=== PATIENT | male | born 1940 | race Caucasian/White ===

== ENCOUNTER 2020-10-12 08:46 | Emergency (ER) | payer MEDICARE, SELFPAY ==
--- NOTE | ~2020-10-12 | CT_ITS ---
EXAMINATION: CT abdomen pelvis w con EXAM DATE: 10/12/2020 11:22 INDICATION: acute abdomen, bloody stools. TECHNIQUE: Spiral CT of the abdomen and pelvis was performed following intravenous injection of 100 m L Omnipaque 350. Axial, coronal and sagittal images were reviewed. The dose-length product (DLP) fo r this examination was 488.60 mGy-cm. The exposure was tailored according to patient size (auto mA e xposure control), and iterative reconstruction (ASIR) was used as additional dose reduction technique . There is no prior study for comparison. FINDINGS: There is fusiform mid abdominal aortic aneurysm up to 3.7 cm. Moderate scattered aortic art eriosclerotic disease. The liver, spleen, adrenal glands and pancreas are unremarkable. Gallbladder is unremarkable. No biliary obstruction. Portal and splenic veins are patent. Kidneys enhance sym metrically. There is no hydronephrosis. There is mild prostatomegaly. The bladder is unremarkable. There is no retroperitoneal or pelvic lymphadenopathy. There is filling defect within a branch of the superior mesenteric vein (see axial image 96). Appeara nce is suspicious for short segment arterial thrombus. Reconstitution of this vessel and branches is suspected distally. There are ileal loops with moderate edema, no pneumatosis or portal venous gas. The appendix is normal. There is expected amount of colonic stool. No free intraperitoneal gas. The heart is normal in size. There are no pericardial or pleural effusions. The lung bases are un remarkable. There are no osteoblastic or osteolytic lesions identified. IMPRESSION: 1. Moderate ileal wall edema, suspect most likely ischemic given SMA branch filling defect, likely th rombus. No pneumatosis intestinalis or perforation. Correlate with lactate levels. 2. Abdominal aortic 3.7 cm fusiform aneurysm. I discussed suspected small bowel ischemia with Angel Diez MD at 10/12/2020 11:43 SENIOR OFFICE SUPPORT ASSISTANT SOSA. Reviewed, dictated and finalized at location G. OR OFFICE SUPPORT ASSISTANT SOSA IMPRESSION: 1. Moderate ileal wall edema, suspect most likely ischemic given SMA branch angle ling defect, likely thrombus. No pneumatosis intestinalis or perforation. Corre late with lactate levels. 2. Abdominal aortic 3.7 cm fusiform aneurysm. I discussed suspected small bowel ischemia with Angel Diez MD at 10/12 11:43 SENIOR OFFICE SUPPORT ASSISTANT SOSA.
[2020-10-12 08:50] VITALS: BP 167/86; PULSE 82; RESP 20; TEMP 36.4; O2SAT 95
--- NOTE | 2020-10-12 09:09 | ED.GIBLEED ---
HPI - GI Bleed General Stated complaint: VOMITTING BLOOD IN STOOL Time Seen by Provider: 10/12/20 08:54 Source: patient Mode of arrival: wheelchair Limitations: no limitations
--- NOTE | 2020-10-12 09:15 | ECG_ITS ---
Measurements Intervals [place] Rate: 83 P: 75 AR: 142 QRS: 61 QRSD: 96 T: 19 QT: 351 QTc: 415 Interpretive Statements SINUS RHYTHM ATRIAL AND VENTRICULAR PREMATURE COMPLEXES INFERIOR INFARCT, AGE INDETERMINATE BASELINE ARTIFACT- I, III ABNORMAL ECG Electronically Signed On 10-12-2020 11:05:11 PUBLIC HEALTH ENGINEER by Henry Mayen D.O.
--- NOTE | 2020-10-12 09:19 | ED.ABDPAIN ---
HPI - Abdominal Pain General Chief Complaint: GI Bleed Stated Complaint: VOMITTING BLOOD IN STOOL Time Seen by Provider: 10/12/20 08:54 Source: patient Mode of arrival: wheelchair Limitations: no limitations History of Present Illness HPI narrative: 80-year-old man with a history of coronary artery disease comes to the emergency department complaining of abdominal pain, nonbloody vomiting, bloody stools blood in his urine. Patient states that his abdomen pain is severe and is mostly on his left periumbilical area. Denies prior similar symptoms and he has had no fever, rash, cough or cold symptoms, sore throat, or sick exposures. He denies chest pain. He has shortness of breath typically because of a history of COPD. MD elicited complaint: abdominal pain Pertinent past history: myocardial infarction Onset (ago): day(s) (1) Location: periumbilical and LLQ Severity: severe Quality: sharp Radiation: none Migration to: no migration Exacerbating factors: movement Associated symptoms: nausea, vomiting, hematochezia and hematuria Related Data Home Medications Medication Instructions Recorded Confirmed atorvastatin 80 mg BYMOUTH DAILY 10/12/20 10/12/20 famotidine 40 mg BYMOUTH DAILY 10/12/20 10/12/20 paroxetine HCl 40 mg PO DAILY 10/12/20 10/12/20 umeclidinium-vilanterol [Anoro 1 inh INHALATION DAILY 10/12/20 10/12/20 Ellipta] Allergies Allergy/AdvReac Type Severity Reaction Status Date / Time No Known Allergies Allergy Verified 10/12/20 10:31 Review of Systems Constitutional: Constitutional: Denies chills, Denies fever(s) and Denies weakness Eyes: Eyes: Denies change in vision and Denies photophobia ENT: Denies dysphagia, Denies nasal congestion and Denies sore throat Cardiovascular: Cardiovascular: Denies chest pain and Denies radiating jaw, neck or arm pain Respiratory: Respiratory: Denies cough and Denies dyspnea Gastrointestinal: Gastrointestinal: Reports as per HPI, Reports abdominal pain, Reports nausea and Reports vomiting Genitourinary: Genitourinary: Reports hematuria, Denies dysuria and Denies urinary frequency Musculoskeletal: Musculoskeletal: Reports back pain, Denies arthralgias and Denies joint swelling Integumentary/Breasts: Skin/Breast: Denies pruritus, Denies erythema and Denies rash Neurologic: Denies vertigo, Denies dizziness and Denies syncope Hematologic/Lymphatic: Hematologic/Lymphatic: Denies easy bleeding and Denies easy bruising Allergic/Immunologic: Allergic/Immunologic: Denies lip swelling and Denies tongue swelling [facility] Past Medical History Medical History (Updated 10/12/20 @ 12:20 by Angel Diez MD) COPD (chronic obstructive pulmonary disease) Coronary artery disease Dyslipidemia PTSD (post-traumatic stress disorder) Surgical History Surgical History (Updated 10/12/20 @ 09:41 by Angel Diez MD) H/O right wrist surgery History of coronary angioplasty with insertion of stent History of left shoulder replacement S/P ORIF (open reduction internal fixation) fracture L wrist S/P right knee arthroscopy Social History Social History (Updated 10/12/20 @ 09:41 by Angel Diez MD) Smoking status: Current every day smoker Tobacco type: cigars Alcohol intake: never Substance use: never Living arrangements: with family Exam Const: General: healthy appearing and alert Orientation/consciousness: patient oriented x3 Limitations: no limitations Other: Moderate acute distress HENMT: Head: normal to inspection Ears: external ears normal, TM's normal bilaterally and EAC's normal General nose exam: Normal nares present Face and sinus: normal facial exam Mouth: Yes moist mucous membranes Throat: posterior oropharynx normal Eyes: Conjunctivae: conjunctivae normal Pupils: Equal, round and reactive pupils present EOM: EOMs intact bilaterally Resp: Effort & Inspection: normal respiratory effort and not labored Auscultation: clear to aus
[2020-10-12] MEDS: SODIUM CHLORIDE 0.9% IV 1,000 ML 999 ML IV CONT (09:30)
[2020-10-12] MEDS: ONDANSETRON INJ 4 MG/2 ML VIAL IV PUSH ×2 (09:30→11:55)
[2020-10-12] MEDS: HYDROmorphone HCL INJ (*CRX) 2 MG/ML VIAL 0.5 MG IV PUSH ×3 (09:35→11:54)
[2020-10-12 09:43] LABS: Basophils Absolute Auto 0.03 K/mm3 (0.00-0.10); Basophils Percent Auto 0.2 % (0.0-1.0); Hematocrit 44.3 % (37.0-46.0); Hemoglobin 15.3 g/dL (12.4-15.3); Immature Granulocyte Absolute 0.14 K/mm3 (0.00-0.00); Immature Granulocyte Percent A 0.8 % (0.0-0.0); Lymphocytes Absolute Auto 0.57 K/mm3 (1.10-4.50); Lymphocytes Percent Auto 3.1 % (18.0-42.0); Mean Corpuscular HGB Conc 34.5 g/dL (32.0-36.0); Mean Corpuscular Hemoglobin 31.1 pg (27.0-31.0); Mean Platelet Volume 11.6 fl (8.7-11.0); Monocytes Absolute Auto 1.31 K/mm3 (0.10-0.90); Monocytes Percent Auto 7.1 % (2.0-11.0); Neutrophils Absolute Auto 16.4 K/mm3 (1.7-7.2); Neutrophils Percent Auto 88.8 % (50.0-70.0); Platelet Count Result 226 K/mm3 (150-420); Red Blood Count 4.92 M/mm3 (4.70-6.10); Red Cell Distribution Width 13.2 % (11.6-14.4); White Blood Count 18.5 K/mm3 (4.8-10.8)
[2020-10-12 09:46] LABS: Add Urine Microscopic? YES; Appearance Urine Clear (Clear); Bilirubin Urine Negative (Negative); Blood Urine 3+ (Negative); Color Urine Yellow (Yellow); Glucose Urine UA Negative (Negative); Ketones Urine Negative (Negative); Leukocyte Esterase Ur Negative LEU/UL (Negative); Nitrate Urine Negative (Negative); Protein Urine 2+ (Negative); Urobilinogen Urine 0.2 mg/dL (0.2-1.0); pH Urine 6.5 (5.0-8.0)
[2020-10-12 09:52] LABS: Bacteria Urine Trace /hpf; WBC Urine 0-3 /hpf (0-3)
[2020-10-12 09:59] LABS: Alanine Aminotransferase 34 U/L (16-63); Albumin Level 3.7 g/dL (3.4-5.0); Alkaline Phosphatase 96 U/L (46-116); Anion Gap 11 mmol/L (8-16); Aspartate Amino Transferase 50 U/L (15-37); Bilirubin,Total 0.8 mg/dL (0.00-1.00); Blood Urea Nitrogen 22 mg/dL (7-18); Calcium 10.7 mg/dL (8.5-10.1); Carbon Dioxide 28 mmol/L (21-32); Chloride 95 mmol/L (98-108); Estimated Glomerular Filt Rate > 60; Glucose 191 mg/dL (70-99); Lipase 59 U/L (73-393); Osmolality Calculated 286 mOsm/kg (285-295); Potassium 3.7 mmol/L (3.5-5.1); Sodium 134 mmol/L (136-145); Total Protein 7.9 g/dL (6.4-8.2); Troponin I 39.6 ng/L (0.00-60.4)
[2020-10-12 10:01] LABS: Partial Thromboplastin Time 28.9 SEC (23.90-30.70); Prothrombin Time 10.7 Seconds (9.50-12.10)
[2020-10-12 10:02] LABS: Lactic Acid Reflex 2.2 mmol/L (0.4-2.0)
--- NOTE | 2020-10-12 10:45 | PC.NURSE ---
REPORT TO CHIKIS GOODE
[2020-10-12 10:46] VITALS: BP 167/86; PULSE 82; RESP 20; TEMP 36.4; O2SAT 95
--- NOTE | 2020-10-12 11:50 | PC.NURSE ---
[facility] CALLED FOR POSSIBLE TRANSFER
[2020-10-12] MEDS: SODIUM CHLORIDE 0.9% IV 1,000 ML 200 ML IV CONT (11:54)
[2020-10-12 12:12] VITALS: BP 140/68; PULSE 78; O2SAT 97
--- NOTE | 2020-10-12 12:16 | PC.NURSE ---
[facility] TRANSFER - PT PREFERS US TO CALL [facility]
[2020-10-12 12:39] LABS: Reflex Lactic Acid Yes or No Add Lactic
[2020-10-12 13:11] LABS: Lactic Acid 1.5 mmol/L (0.4-2.0)
[2020-10-12] MEDS: metroNIDAZOLE 500 MG/ISO 100ML 500 MG/100 ML BAG 100 MG IVPB (13:20)
[2020-10-12 13:28] VITALS: BP 131/61; PULSE 75; O2SAT 97
== END 2020-10-12 13:50 | disposition short-term general hospital (02) ==
PROVIDERS: Emergency Provider Emergency Medicine; PCP Family Medicine
DX: K55.8 Other vascular disorders of intestine (principal); J44.9 Chronic obstructive pulmonary disease, unspecified; I25.10 Atherosclerotic heart disease of native coronary artery without angina pectoris; E78.5 Hyperlipidemia, unspecified; F17.200 Nicotine dependence, unspecified, uncomplicated
CPT/HCPCS: 36415; 74177; 80053; 81001; 83605; 83690; 84484; 85025; 85610; 85730; 87040; 93005; 96361; 96365; 96375; 96376; 99285; J1170; J1956; J2405; J7030; Q9965; Q9967

== ENCOUNTER 2020-10-24 09:31 | Observation (INO) | payer MEDICARE, SELFPAY ==
[2020-10-24] VITALS (16 sets, daily range): BP systolic 94–119; BP diastolic 51–77; PULSE 78–120; RESP 14–18; TEMP 36.8; O2SAT 91–98; BMI 23.8
--- NOTE | ~2020-10-24 | CT_ITS ---
EXAMINATION: CT abdomen pelvis w con EXAM DATE: 10/24/2020 11:21 INDICATION: Low abdominal pain, weakness. Ischemic colitis suspected on prior CT. TECHNIQUE: Spiral CT of the abdomen and pelvis was performed following intravenous injection of 100 m L Omnipaque 350. Axial, coronal and sagittal images were reviewed. The dose-length product (DLP) fo r this examination was 431.64 mGy-cm. The exposure was tailored according to patient size (auto mA e xposure control), and iterative reconstruction (ASIR) was used as additional dose reduction technique . Comparison is made to prior examination from 10/12/2020. FINDINGS: Again there is moderate mid small bowel wall edema, the same segments involved on prior shannan dy. 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 There is no pneumatosis in testinalis or portal venous gas. No perforation. Small amount of perihepatic ascites has developed. The liver, spleen, adrenal glands and pancreas are unremarkable. Gallbladder is unremarkable. No biliary obstruction. Portal and splenic veins are p atent. Kidneys enhance symmetrically. There is no hydronephrosis. The prostate is unremarkable. The bladder is unremarkable. There is no retroperitoneal or pelvic lymphadenopathy. There is moder ate scattered arteriosclerotic disease. Mid abdominal aortic fusiform hernia up to 3.7 cm unchanged. The appendix is normal. There is colonic fluid, correlate for diarrhea. No free intraperitoneal ga s. Small right pleural effusion has developed. Right basilar linear atelectasis. The lung bases ar e unremarkable. There are no osteoblastic or osteolytic lesions identified. IMPRESSION: 1. Interval resolution of previously seen SMA thrombus, but persistent moderately edematous small amanuel wel loops with hyperemia. 2. Colonic fluid, diarrhea. 3. Development of small right pleural effusion and small ascites. Reviewed, dictated and finalized at location B. ATION REP IMPRESSION: 1. Interval resolution of previously seen SMA thrombus, but persistent moderat romero edematous small bowel loops with hyperemia. 2. Colonic fluid, diarrhea. 3. Development of small right pleural effusion and small ascites.
[2020-10-24 10:32] LABS: Basophils Absolute Auto 0.06 K/mm3 (0.00-0.10); Basophils Percent Auto 0.3 % (0.0-1.0); Eosinophils Absolute Auto 0.04 K/mm3 (0.02-0.50); Eosinophils Percent Auto 0.2 % (1.0-6.0); Hematocrit 44.9 % (37.0-46.0); Hemoglobin 15.3 g/dL (12.4-15.3); Immature Granulocyte Absolute 0.15 K/mm3 (0.00-0.00); Immature Granulocyte Percent A 0.8 % (0.0-0.0); Lymphocytes Absolute Auto 0.89 K/mm3 (1.10-4.50); Lymphocytes Percent Auto 4.7 % (18.0-42.0); Mean Corpuscular HGB Conc 34.1 g/dL (32.0-36.0); Mean Corpuscular Hemoglobin 31.3 pg (27.0-31.0); Mean Corpuscular Volume 91.8 fL (78.0-102.0); Mean Platelet Volume 10.4 fl (8.7-11.0); Monocytes Percent Auto 4.8 % (2.0-11.0); Neutrophils Absolute Auto 16.8 K/mm3 (1.7-7.2); Neutrophils Percent Auto 89.2 % (50.0-70.0); Platelet Count Result 335 K/mm3 (150-420); Red Blood Count 4.89 M/mm3 (4.70-6.10); Red Cell Distribution Width 14.3 % (11.6-14.4); White Blood Count 18.8 K/mm3 (4.8-10.8)
[2020-10-24 10:48] LABS: Alanine Aminotransferase 49 U/L (16-63); Albumin Level 2.3 g/dL (3.4-5.0); Alkaline Phosphatase 63 U/L (46-116); Anion Gap 6 mmol/L (8-16); Aspartate Amino Transferase 27 U/L (15-37); Bilirubin,Total 0.9 mg/dL (0.00-1.00); Blood Urea Nitrogen 14 mg/dL (7-18); Calcium 8.5 mg/dL (8.5-10.1); Carbon Dioxide 28 mmol/L (21-32); Chloride 102 mmol/L (98-108); Estimated CRCL calculation 40 ml/min; Estimated Glomerular Filt Rate 50; Glucose 161 mg/dL (70-99); Lipase 80 U/L (73-393); Osmolality Calculated 285 mOsm/kg (285-295); Potassium 5.2 mmol/L (3.5-5.1); Sodium 136 mmol/L (136-145); Total Protein 5.9 g/dL (6.4-8.2)
[2020-10-24 10:53] LABS: Lactic Acid Reflex 1.9 mmol/L (0.4-2.0)
[2020-10-24 10:53] LABS: Appearance Urine Clear (Clear); Bilirubin Urine 2+ (Negative); Color Urine Yellow (Yellow); Glucose Urine UA Negative (Negative); Ketones Urine Trace (Negative); Leukocyte Esterase Ur Trace (Negative); Nitrate Urine Negative (Negative); Protein Urine Trace (Negative); Specific Grav Ur 1.025 (1.010-1.020); pH Urine 5.5 (5.0-8.0)
[2020-10-24 10:59] LABS: Add Urine Microscopic? YES; Blood Urine Trace-Intact (Negative); Calcium Oxalate Crystals Urine Present /hpf; RBC Urine 0-2 /hpf (0-2); WBC Urine 0-3 /hpf (0-3)
[2020-10-24 11:00] LABS: Bacteria Urine Trace /hpf; Mucus Urine Few /lpf
[2020-10-24] MEDS: SODIUM CHLORIDE 0.9% IV 1,000 ML 200 ML IV CONT ×3 (13:35→23:39)
[2020-10-24] MEDS: SODIUM CHLORIDE 0.9% IV 1,000 ML 500 ML IV CONT (15:08)
[2020-10-24] MEDS: ENOXAPARIN 40 MG/0.4 ML SYRINGE SUB-Q (15:09)
--- NOTE | 2020-10-24 19:14 | PC.NURSE ---
upset with staff with meds. Explained I will get one time doses for him. claims he did not take am meds. tried to explain med doses on some meds have changed. cont to want meds as he wants. charge nurse aware. no c/o of n/v or pain voiced. refuses clear liquids. claims that stuff takes like shit and refuses to try. attempted to explain why it is clear liquid. he just will not let nurse explain. claims I want it my way. douglas harper
[2020-10-24] MEDS: ATORVASTATIN 40 MG TABLET 80 MG PO (21:00)
[2020-10-25] VITALS: BP 105/62; PULSE 72; RESP 20; TEMP 36.8; O2SAT 96
[2020-10-25] MEDS: SODIUM CHLORIDE 0.9% IV 1,000 ML 200 ML IV CONT ×3 (05:20→17:59)
[2020-10-25 05:56] LABS: Hematocrit 35.6 % (37.0-46.0); Hemoglobin 11.6 g/dL (12.4-15.3); Mean Corpuscular HGB Conc 32.6 g/dL (32.0-36.0); Mean Corpuscular Hemoglobin 30.4 pg (27.0-31.0); Mean Corpuscular Volume 93.2 fL (78.0-102.0); Mean Platelet Volume 10.5 fl (8.7-11.0); Platelet Count Result 262 K/mm3 (150-420); Red Blood Count 3.82 M/mm3 (4.70-6.10); Red Cell Distribution Width 14.5 % (11.6-14.4); White Blood Count 6.1 K/mm3 (4.8-10.8)
--- NOTE | 2020-10-25 06:19 | PC.NURSE ---
Stool, continent, mushy brown, moderate amt.
[2020-10-25 06:20] LABS: Alanine Aminotransferase 38 U/L (16-63); Albumin Level 1.9 g/dL (3.4-5.0); Alkaline Phosphatase 52 U/L (46-116); Anion Gap 5 mmol/L (8-16); Aspartate Amino Transferase 22 U/L (15-37); Bilirubin,Total 0.5 mg/dL (0.00-1.00); Blood Urea Nitrogen 11 mg/dL (7-18); Calcium 7.4 mg/dL (8.5-10.1); Carbon Dioxide 28 mmol/L (21-32); Chloride 109 mmol/L (98-108); Estimated CRCL calculation 55 ml/min; Estimated Glomerular Filt Rate > 60; Glucose 91 mg/dL (70-99); Lipase 81 U/L (73-393); Magnesium 1.8 mg/dL (1.8-2.4); Osmolality Calculated 293 mOsm/kg (285-295); Potassium 4.8 mmol/L (3.5-5.1); Sodium 142 mmol/L (136-145); Total Protein 4.5 g/dL (6.4-8.2)
[2020-10-25 06:25] LABS: Lactic Acid Reflex 0.7 mmol/L (0.4-2.0)
--- NOTE | 2020-10-25 06:37 | ED.ABDPAIN ---
HPI - Abdominal Pain General Chief Complaint: Weakness Stated Complaint: DEHYDRATED Time Seen by Provider: 10/24/20 10:05 Source: patient and family Mode of arrival: ambulatory Limitations: no limitations History of Present Illness HPI narrative: Patient has had abdominal pain, relatively severe since 2 am last night. This has been associated with some some mild nausea. He says he had some loose stools prior to this and feels he is dry, dehydrated. Abdominal pain he complains of is sharp, moderately severe, ongoing not relieved at home, similar to previous episode not long ago when he presented with a clot in his superior mesenteric artery MD elicited complaint: abdominal pain Pertinent past history: other (ischemia of bowel) Pain Consistency: intermittent Location: diffuse Severity: moderate Quality: cramping and stabbing Radiation: other (wide throughout abdomen) Exacerbating factors: other (decreased when does not eat) Relieving factors: rest Treatments prior to arrival: NSAIDs and prescription analgesics Related Data Home Medications Medication Instructions Recorded Confirmed paroxetine HCl 40 mg PO DAILY 10/12/20 10/24/20 umeclidinium-vilanterol [Anoro 1 inh INHALATION DAILY 10/12/20 10/24/20 Ellipta] atorvastatin 80 mg PO DAILY 10/24/20 10/24/20 famotidine 40 mg PO BID 10/24/20 10/24/20 Allergies Allergy/AdvReac Type Severity Reaction Status Date / Time No Known Allergies Allergy Verified 10/12/20 10:31 Review of Systems Eyes: Eyes: Reports no additional eye complaints Cardiovascular: Cardiovascular: Reports no additional cardiovascular complaints Respiratory: Respiratory: Reports no additional respiratory complaints Gastrointestinal: Gastrointestinal: Reports no additional gastrointestinal complaints, Reports abdominal pain, Reports diarrhea and Reports nausea Comments: presentation such as abdominal ischemia Genitourinary: Genitourinary: Reports no additional male genitourinary complaints Musculoskeletal: Musculoskeletal: Reports no additional musculoskeletal complaints Integumentary/Breasts: Skin/Breast: Reports system reviewed and no additional complaints, except as docu Neurologic: Reports system reviewed and no additional complaints, except as documented Psychiatric: Psychiatric: Reports no additional psychiatric complaints Endocrine: Endocrine: Reports no additional endocrine complaints Hematologic/Lymphatic: Hematologic/Lymphatic: Reports no additional hematologic/lymphatic complaints Allergic/Immunologic: Allergic/Immunologic: Reports no additional allergic/immunologic complaints [facility] Past Medical History Medical History COPD (chronic obstructive pulmonary disease) Coronary artery disease Dyslipidemia PTSD (post-traumatic stress disorder) Surgical History Surgical History H/O right wrist surgery History of coronary angioplasty with insertion of stent History of left shoulder replacement S/P ORIF (open reduction internal fixation) fracture L wrist S/P right knee arthroscopy Family History Family History Father Cerebrovascular accident Social History Social History Years smoked: 70 Smoking status: Current every day smoker Tobacco type: cigars Alcohol intake: never Substance use: never Gender identity (if verbalized by the patient): Male Sexual Orientation (if Verbalized by the Patient): Straight or Heterosexual Spiritual care concerns: No Exam Const: Orientation/consciousness: patient oriented x3 HENMT: Head: normal to inspection General nose exam: Normal external nose present and Normal nares present Face and sinus: normal facial exam Throat: posterior oropharynx normal Eyes: Conjunctivae: conjunctivae normal Neck: Neck: normal visual inspectio
[2020-10-25 07:45] VITALS: BP 96/67; PULSE 86; RESP 18; TEMP 36.8; O2SAT 95
--- NOTE | 2020-10-25 08:36 | PM.IMHP ---
H&P: HPI History of Present Illness Date/Time: 10/25/20 08:36 Chief Complaint: Abdominal pain Narrative: Tanisha Garcia is a 80 year old male that presented to the ED yesterday with complaints of severe abdominal pain. PMH: COPD, CAD, dyslipidemia, PTSD . Patient previously visited here 10/12/2020 for abdominal pain vomiting and blood in stool. At that time imaging indicated MAT patient was transferred to [facility] in [place] for general surgery(Dr. Castaneda). Patient notes that at that time he was medically treated with no surgical intervention. Shortly afterwards he started experiencing abdominal pain once again and went to [facility] again. At that time patient was treated with IV fluids and discharged. I have requested records from [facility]. Patient also noted that he was to follow-up with an appointment. Patient has yet to do that because he has been ill and has been unable to travel 70 pounds. Patient continues to complain of abdominal pain but not as severe as it was when he was first admitted. Patient has not had any pain medication. He has been on liquid diet regular diet. I will advance his diet to see how well he tolerates. Patient does deny any hematochezia since his first first on 10/12/2020. The patient denies SOB, CP, palpitation, extremity numbness, lightheadedness, dizziness, constipation, diarrhea, chills, or fever. Patient noted that after he ate toast for breakfast he did experience mild abdominal pain. 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 He prefers to refrain from narcotics use This document was completed by using [employer] Direct speech recognition software, therefore tallow refiner variances may occur. Despite proofreading, typographical errors may also occur. Review of Systems Review of Systems: All systems reviewed & are unremarkable except as noted in HPI and below (10 point system review) PMFSH Past Medical History Medical History COPD (chronic obstructive pulmonary disease) Coronary artery disease Dyslipidemia PTSD (post-traumatic stress disorder) Surgical History Surgical History H/O right wrist surgery History of coronary angioplasty with insertion of stent History of left shoulder replacement S/P ORIF (open reduction internal fixation) fracture L wrist S/P right knee arthroscopy Family History Family History Father Cerebrovascular accident Social History Social History Years smoked: 70 Smoking status: Current every day smoker Tobacco type: cigars Alcohol intake: never Substance use: never Gender identity (if verbalized by the patient): Male Sexual Orientation (if Verbalized by the Patient): Straight or Heterosexual Spiritual care concerns: No Meds Home Medications and Allergies Home Medications Medication Instructions Recorded Confirmed Type paroxetine HCl 40 mg PO DAILY 10/12/20 10/24/20 History umeclidinium-vilanterol [Anoro 1 inh INHALATION DAILY 10/12/20 10/24/20 History Ellipta] atorvastatin 80 mg PO DAILY 10/24/20 10/24/20 History famotidine 40 mg PO BID 10/24/20 10/24/20 History Allergies Allergy/AdvReac Type Severity Reaction Status Date / Time No Known Allergies Allergy Verified 10/12/20 10:31 Vital Signs Vital Signs - 24 hr 10/24/20 09:57 10/24/20 11:41 10/24/20 11:45 Temperature 98.2 F Pulse Rate 120 H Respiratory Rate 14 Blood Pressure 110/77 Pulse Oximetry 96 97 98 10/24/20 12:00 10/24/20 12:01 10/24/20 12:15 Temperature Pulse Rate Respiratory Rate Blood Pressure 119/63 110/66 Pulse Oximetry 95 96 94 10/24/20 12:30 10/24/20 12:31 10/24/20 12:46 Temperature Pulse Rate Respiratory Rate Blood Pressure 1
[2020-10-25] MEDS: ATORVASTATIN 40 MG TABLET 80 MG PO (09:14)
[2020-10-25] MEDS: PARoxetine 20 MG TABLET 40 MG PO (09:14)
[2020-10-25] MEDS: FLUTICASONE/UMECLIDIN/VILANTER 100-62.5-25 MCG ELLIPTA 1 PUFF INHALATION (09:15)
[2020-10-25 10:03] LABS: Add Urine Microscopic? YES; Appearance Urine Clear (Clear); Bilirubin Urine Negative (Negative); Blood Urine 1+ (Negative); Color Urine Yellow (Yellow); Glucose Urine UA Negative (Negative); Ketones Urine Negative (Negative); Leukocyte Esterase Ur Negative LEU/UL (Negative); Nitrate Urine Negative (Negative); Protein Urine Negative (Negative); Specific Grav Ur 1.015 (1.010-1.020); Urobilinogen Urine 0.2 mg/dL (0.2-1.0); pH Urine 6.5 (5.0-8.0)
[2020-10-25 10:08] LABS: Bacteria Urine Trace /hpf; RBC Urine 0-2 /hpf (0-2); WBC Urine 0-3 /hpf (0-3)
--- NOTE | 2020-10-25 11:55 | ECG_ITS ---
Measurements Intervals [place] Rate: 72 P: 65 MD: 138 QRS: 63 QRSD: 90 T: -25 QT: 381 QTc: 419 Interpretive Statements SINUS RHYTHM WITH SINUS ARRHYTHMIA INFERIOR INFARCT, AGE INDETERMINATE BASELINE ARTIFACT- V5-V6 ABNORMAL ECG Electronically Signed On 10-25-2020 12:44:05 DRAWING IN MACHINE TENDER HELPER by Henry Mayen D.O.
[2020-10-25 14:23] LABS: Occult Blood Negative (Negative)
[2020-10-25] MEDS: ENOXAPARIN 40 MG/0.4 ML SYRINGE SUB-Q (14:45)
[2020-10-25 15:34] VITALS: BP 106/60; PULSE 71; RESP 18; TEMP 36.9; O2SAT 97
--- NOTE | 2020-10-25 18:25 | PC.NURSE ---
pt is unhappy that the nurse practitioner never came back in to discuss a plan after receiving his records from [facility], pt also expresses unhappiness over the dr messing with his medicines , pt reports his stomach pain has returned but declines pain medicine at this time
[2020-10-25] MEDS: ONDANSETRON INJ 4 MG/2 ML VIAL IV PUSH (19:07)
[2020-10-25 23:41] VITALS: BP 109/57; PULSE 76; RESP 18; TEMP 37.3; O2SAT 95
[2020-10-26] MEDS: SODIUM CHLORIDE 0.9% IV 1,000 ML 200 ML IV CONT ×2 (00:34→05:50)
[2020-10-26 05:41] LABS: Hematocrit 33.3 % (37.0-46.0); Hemoglobin 10.9 g/dL (12.4-15.3); Mean Corpuscular HGB Conc 32.7 g/dL (32.0-36.0); Mean Corpuscular Hemoglobin 30.7 pg (27.0-31.0); Mean Corpuscular Volume 93.8 fL (78.0-102.0); Mean Platelet Volume 10.7 fl (8.7-11.0); Platelet Count Result 278 K/mm3 (150-420); Red Blood Count 3.55 M/mm3 (4.70-6.10); Red Cell Distribution Width 14.4 % (11.6-14.4); White Blood Count 6.1 K/mm3 (4.8-10.8)
[2020-10-26 06:09] LABS: Alanine Aminotransferase 37 U/L (16-63); Albumin Level 1.7 g/dL (3.4-5.0); Alkaline Phosphatase 46 U/L (46-116); Anion Gap 7 mmol/L (8-16); Aspartate Amino Transferase 29 U/L (15-37); Bilirubin,Total 0.3 mg/dL (0.00-1.00); Blood Urea Nitrogen 7 mg/dL (7-18); CRP 3.7 mg/dL (0.0-0.9); Calcium 6.9 mg/dL (8.5-10.1); Carbon Dioxide 25 mmol/L (21-32); Chloride 111 mmol/L (98-108); Estimated CRCL calculation 63 ml/min; Estimated Glomerular Filt Rate > 60; Glucose 96 mg/dL (70-99); Lipase 113 U/L (73-393); Magnesium 1.7 mg/dL (1.8-2.4); Osmolality Calculated 294 mOsm/kg (285-295); Potassium 4.3 mmol/L (3.5-5.1); Sodium 143 mmol/L (136-145); Total Protein 4.2 g/dL (6.4-8.2)
[2020-10-26 08:00] VITALS: BP 111/63; PULSE 72; RESP 18; TEMP 37.1; O2SAT 95
[2020-10-26] MEDS: PARoxetine 20 MG TABLET 40 MG PO (09:08)
[2020-10-26] MEDS: MAGNESIUM OXIDE 400 MG TABLET PO (09:09)
[2020-10-26] MEDS: predniSONE 20 MG TABLET 60 MG PO (09:09)
[2020-10-26] MEDS: FAMOTIDINE 20 MG TABLET PO (09:12)
--- NOTE | 2020-10-26 11:28 | PM.DS ---
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 Continue IV hydration as recommended by surgeons at [place] Requested medical records from [facility] (2) COPD (chronic obstructive pulmonary disease): Code(s): J44.9 - Chronic obstructive pulmonary disease, unspecified Status: Acute Assessment and Plan: Continue inhalers (3) PTSD (post-traumatic stress disorder): Code(s): F43.10 - Post-traumatic stress disorder, unspecified Status: Acute Assessment and Plan: Stable continue paroxetine (4) Coronary artery disease: Code(s): I25.10 - Atherosclerotic heart disease of [place] coronary artery without angina pectoris Status: Acute Assessment and Plan: Continue statins (5) Hyperemia: Code(s): R68.89 - Other general symptoms and signs Status: Acute Assessment and Plan: Imaging indicates persistent moderately edematous small bowel loops with hyperemia DS: Summary Hospital Course Hospital Course: Tanisha Garcia is a 80 year old male that presented to the ED yesterday with complaints of severe abdominal pain. PMH: COPD, CAD, dyslipidemia, PTSD . Patient previously visited here 10/12/2020 for abdominal pain vomiting and blood in stool. At that time imaging indicated MAT patient was transferred to [facility] in [place] for general surgery(Dr. Castaneda). Patient notes that at that time he was medically treated with no surgical intervention. Shortly afterwards he started experiencing abdominal pain once again and went to [facility] again. At that time patient was treated with IV fluids and discharged. I have requested records from [facility]. Patient also noted that he was to follow-up with an appointment. Patient has yet to do that because he has been ill and has been unable to travel 70 pounds. Patient abdominal pain has improved he does have tenderness to his mid abdominal area. He was able to tolerate all his meals. The patient denies SOB, CP, palpitation, extremity numbness, lightheadedness, dizziness, constipation, diarrhea, chills, or fever. Patient will follow up with his surgeon in [place] Time Spent with Patient Time attestation: Total time spent providing and/or coordinating discharge services: Exam Narrative: Exam Narrative: GENERAL: This is a well-nourished, well-developed patient, in no apparent distress. HEAD: normocephalic, atraumatic. EYES: PERRL. Sclera clear/white. Vision is grossly intact. EARS: External ears normal, auditory canals clear and without drainage, TMs normal without perforation. Hearing grossly intact. NOSE: External nose normal with no obvious nasal discharge, nares without redness, no rhinorrhea. THROAT: Mucous membranes moist, posterior pharynx clear. NECK: Neck supple, non-tender without lymphadenopathy, masses or thyromegaly. CARDIOVASCULAR: Regular rate and rhythm without murmurs, gallops, or rubs. RESPIRATORY: Clear to auscultation. Breath sounds equal bilaterally. No wheezes, rales, or rhonchi. GASTROINTESTINAL: Abdomen soft, non-tender, nondistended. Bowel sounds are active. No hepato-splenomegaly, or palpable masses. No guarding. SKIN: warm, intact with no suspicious lesions or rash, good texture and turgor. NEURO: awake, alert, and oriented to person, place and time. There were no obvious focal neurologic abnormalities. Steady gait EXTREMITIES: Normal range of motion. No edema. No calf tenderness. Negative Homans sign bilaterally. BACK: Nontender without deformity or crepitance. No flank tenderness.
--- NOTE | 2020-10-26 12:08 | PC.NURSE ---
Patient discharge to home via private vehicle. Saline lock removed and tolerated well. Patient verbalizes understanding on how to monitor for sings and symptoms of infections. Home instructions given to patient and he verbalizes understanding. Personal belongings sent with patient.
--- NOTE | 2020-10-27 15:03 | PC.NURSE ---
Pt states he received and understood his discharge instructions. He also states the entire staff was good .
== END 2020-10-26 12:30 | disposition home or self-care (01) ==
LOC: CHSED 10:53 → CHS2ND 13:38
PROVIDERS: Nurse Practitioner; Admitting Provider Emergency Medicine; Emergency Provider Emergency Medicine; PCP Family Medicine; Visit Provider Emergency Medicine
DX: K55.059 Acute (reversible) ischemia of intestine, part and extent unspecified (principal); J44.9 Chronic obstructive pulmonary disease, unspecified; E78.5 Hyperlipidemia, unspecified; F43.10 Post-traumatic stress disorder, unspecified; F17.290 Nicotine dependence, other tobacco product, uncomplicated; Z95.5 Presence of coronary angioplasty implant and graft; Z96.612 Presence of left artificial shoulder joint
CPT/HCPCS: 36415; 74177; 80053; 81001; 82272; 83605; 83690; 83735; 85025; 85027; 86140; 93005; 96361; 96372; 96374; 99285; A9270; G0378; J1650; J2405; J7030; J7512; Q9965; Q9967

== ENCOUNTER 2020-11-01 17:35 | Outpatient (CLI) | payer MEDICARE, SELFPAY ==
[2020-11-01 17:51] LABS: Basophils Absolute Auto 0.07 K/mm3 (0.00-0.10); Basophils Percent Auto 0.6 % (0.0-1.0); Eosinophils Absolute Auto 0.17 K/mm3 (0.02-0.50); Eosinophils Percent Auto 1.4 % (1.0-6.0); Hematocrit 47.5 % (37.0-46.0); Hemoglobin 15.5 g/dL (12.4-15.3); Immature Granulocyte Absolute 0.09 K/mm3 (0.00-0.00); Immature Granulocyte Percent A 0.8 % (0.0-0.0); Lymphocytes Absolute Auto 1.82 K/mm3 (1.10-4.50); Lymphocytes Percent Auto 15.4 % (18.0-42.0); Mean Corpuscular HGB Conc 32.6 g/dL (32.0-36.0); Mean Corpuscular Hemoglobin 30.6 pg (27.0-31.0); Mean Corpuscular Volume 93.7 fL (78.0-102.0); Mean Platelet Volume 10.8 fl (8.7-11.0); Monocytes Absolute Auto 1.06 K/mm3 (0.10-0.90); Neutrophils Absolute Auto 8.6 K/mm3 (1.7-7.2); Neutrophils Percent Auto 72.8 % (50.0-70.0); Platelet Count Result 285 K/mm3 (150-420); Red Blood Count 5.07 M/mm3 (4.70-6.10); Red Cell Distribution Width 14.5 % (11.6-14.4); White Blood Count 11.8 K/mm3 (4.8-10.8)
[2020-11-01 18:00] LABS: Anion Gap 7 mmol/L (8-16); Blood Urea Nitrogen 15 mg/dL (7-18); Calcium 9.2 mg/dL (8.5-10.1); Carbon Dioxide 31 mmol/L (21-32); Chloride 102 mmol/L (98-108); Estimated Glomerular Filt Rate 53; Glucose 129 mg/dL (70-99); Osmolality Calculated 292 mOsm/kg (285-295); Potassium 4.1 mmol/L (3.5-5.1); Sodium 140 mmol/L (136-145)
== END 2020-11-01 17:36 | disposition home or self-care (01) ==
LOC: CHSLAB 17:36
PROVIDERS: PCP Family Medicine; Visit Provider Family Medicine
DX: M79.605 Pain in left leg (principal)
CPT/HCPCS: 36415; 80048; 85025; 85380

== ENCOUNTER 2020-11-03 10:39 | Emergency (ER) | payer MEDICARE, SELFPAY ==
--- NOTE | ~2020-11-03 | CT_ITS ---
EXAMINATION: CTA chest PE abdomen pel DATE: 11/03/2020 12:23 INDICATION: Left lower limb deep venous thrombosis presenting with abdominal pain and increasing left lower limb pain. TECHNIQUE: Computed tomography (CT) pulmonary angiogram of the chest was performed with 100 mL Omnipa que-350 intravenous contrast. Additional 3D reconstructions utilizing coronal maximum intensity proje ction (MIP) were performed. CT of the abdomen and pelvis was performed with intravenous contrast util izing the same contrast bolus following a short delay. Automated exposure control and iterative recon struction technique were employed. The dose-length product was 776.91 mGy-cm. COMPARISON: None FINDINGS: Chest: Excellent contrast opacification of the pulmonary arteries. There is mild streak artifact from dense contrast in the superior vena cava and right atrium. Mild scattered respiratory motion artifact. Ther e are bilateral pulmonary emboli including in the anterior segmental pulmonary artery of the left low er lobe and extending between the right middle and lower lobar pulmonary arteries and into a few segm ental and subsegmental pulmonary arteries in the right middle and lower lobes. Moderate emphysema. Sm all region of groundglass opacity in the posterior basilar segment of the right lower lobe which coul d represent pulmonary infarct, atelectasis or less likely pneumonia or pulmonary edema. Tiny posterio rly layering right pleural effusion.. Heart size is normal. No leftward bowing of the ventricular sep viktoria to suggest right heart strain. Atherosclerotic coronary artery calcific a cyst. Thoracic aorta is normal in caliber with no dissection. No pathologically enlarged thoracic lymphadenopathy. Small sli ding-type hiatal hernia. Severe lower thoracic spondylosis. Abdomen/pelvis: Liver, gallbladder, spleen, pancreas and bilateral adrenal glands are normal. There are few bilateral subcentimeter renal cysts. Small focus of cortical scarring at the lower pole of the right kidney li jaylyn sequela of prior infection or infarction. Fluid throughout the colon consistent with diarrhea. N ormal appendix. There is edematous wall thickening along several loops of small bowel in the pelvis c onsistent with nonspecific enteritis which could be infectious, inflammatory or ischemic in etiology . Fusiform aneurysm of the infrarenal abdominal aorta which measures up to 3.9 x 3.7 cm. There is renee cified atherosclerosis of the aorta and many of the other arteries. No hemodynamic significant stenos is along the celiac axis, superior or inferior mesenteric arteries. The portal, splenic and superior mesenteric veins are patent. Diffuse mild bladder wall thickening to at least in part to incomplete d istention. There is also be component of chronic outlet obstruction given the enlarged prostate. No f ree intraperitoneal gas or fluid. No pathologically enlarged abdominal or pelvic lymphadenopathy. Lef t hydrocele. Severe lower lumbar spondylosis. IMPRESSION: 1. Bilateral pulmonary emboli with moderate clot burden but without evidence of right heart strain. Vu Monge discussed these findings with Dr. Diez at 12:40 PM. 2. Persistent edematous wall thickening of a few loops of small bowel in the pelvis which is likely r elated to prior ischemia with thrombus seen in the superior mesenteric artery on earlier CT dated . Differential would include infection or inflammatory bowel disease. 3. Fusiform 3.9 x 3.7 cm diameter infrarenal abdominal aortic aneurysm. 4. Moderate emphysema. 5. Small sliding-type hiatal hernia. 6. Mild diffuse bladder wall thickening which could be related to chronic outlet obstruction related to prostatomegaly. Reviewed, dictated and finalized at location A. ISIONING ANALYST IMPRESSION: 1. Bilatera
--- NOTE | ~2020-11-03 | US_ITS ---
EXAMINATION: US venous doppler [facility] DATE: 11/03/2020 12:50 INDICATION: Lower limb pain. TECHNIQUE: Grayscale ultrasound images without and with compression and Doppler ultrasound images of the bilateral lower extremity veins were obtained. COMPARISON: None. FINDINGS: The visualized portions of right common femoral vein, profunda (deep) femoral vein, femoral vein, pop liteal vein, peroneal veins, posterior tibial veins, and greater saphenous vein outflow are patent. The left profunda femoral vein and greater saphenous vein outflow are patent. There is thrombus in le ft common femoral vein, femoral vein, popliteal vein, and posterior tibial and peroneal veins. IMPRESSION: 1. Acute deep vein thrombosis in left lower limb. Reviewed, dictated and finalized at location B. OR CLINICAL DATA MANAGER
[2020-11-03 11:20] VITALS: BP 101/64; PULSE 108; RESP 18; TEMP 36.6; O2SAT 95
--- NOTE | 2020-11-03 11:21 | ED.EXTPRO ---
HPI - Extremity Problem General Chief complaint: Extremity Injury, Lower Stated complaint: blood clot L Leg, pain/Can't urinate Time Seen by Provider: 11/03/20 11:21 Source: patient Mode of arrival: wheelchair Limitations: no limitations History of Present Illness HPI Narrative: 80-year-old man a history of smoking, COPD, coronary artery disease and a recent episode of small-bowel ischemia comes in today complaining of pain in his left leg. Patient states that is been present for the last week. His primary care doctor found that he had a positive D-dimer yesterday And was arranging outpatient diagnosis when the patient began complaining of difficulty urinating. He is making urine in small amounts. He denies hematuria, abdominal pain, nausea, vomiting, fever, chest pain, shortness of breath, more cough than usual or back pain. He denies injury. MD Complaint: extremity pain Onset (ago): week(s) (1) Pain Consistency: constant Location: left and lower extremity Quality: aching and sharp Radiation: proximal and distal Relieving factors: rest Exacerbating factors: range of motion, weight bearing, walking and palpation Related Data Home Medications Medication Instructions Recorded Confirmed Anoro Ellipta 1 inh INHALATION DAILY 10/12/20 11/03/20 paroxetine HCl 40 mg PO DAILY 10/12/20 11/03/20 atorvastatin 80 mg PO DAILY 10/24/20 11/03/20 famotidine 40 mg PO BID 10/24/20 11/03/20 Allergies Allergy/AdvReac Type Severity Reaction Status Date / Time No Known Allergies Allergy Verified 10/12/20 10:31 Review of Systems Constitutional: Constitutional: Denies chills, Denies fever(s) and Denies weakness ENT: Denies dysphagia, Denies nasal congestion and Denies sore throat Cardiovascular: Cardiovascular: Denies chest pain and Denies radiating jaw, neck or arm pain Respiratory: Respiratory: Denies cough, Denies dyspnea and Denies wheezing Gastrointestinal: Gastrointestinal: Denies abdominal pain, Denies nausea and Denies vomiting Genitourinary: Genitourinary: Denies hematuria, Reports dysuria and Reports urinary frequency Musculoskeletal: Musculoskeletal: Denies back pain, Denies arthralgias and Denies joint swelling Integumentary/Breasts: Skin/Breast: Denies pruritus, Denies erythema and Denies rash Neurologic: Denies vertigo, Denies dizziness and Denies syncope Hematologic/Lymphatic: Hematologic/Lymphatic: Denies easy bleeding and Denies easy bruising Allergic/Immunologic: Allergic/Immunologic: Denies lip swelling, Denies throat swelling and Denies tongue swelling [facility] Past Medical History Medical History COPD (chronic obstructive pulmonary disease) Coronary artery disease Dyslipidemia PTSD (post-traumatic stress disorder) Surgical History Surgical History H/O right wrist surgery History of coronary angioplasty with insertion of stent History of left shoulder replacement S/P ORIF (open reduction internal fixation) fracture L wrist S/P right knee arthroscopy Family History Family History Father Cerebrovascular accident Social History Social History Years smoked: 70 Smoking status: Current every day smoker Tobacco type: cigars Alcohol intake: never Substance use: never Gender identity (if verbalized by the patient): Male Spiritual care concerns: No Exam Const: General: alert Nutritional Appearance: thin Orientation/consciousness: patient oriented x3 Limitations: no limitations Other: [id number] acute distress. HENMT: Head: normal to inspection General nose exam: Normal nares present Face and sinus: normal facial exam Mouth: Yes moist mucous membranes Throat: posterior oropharynx normal Eyes: Conjunctivae: conjunctivae normal Pupils: Equal, round and reactive
[2020-11-03] MEDS: ENOXAPARIN 100 MG/ML SYRINGE SUB-Q (11:49)
--- NOTE | 2020-11-03 11:54 | PC.NURSE ---
PT TO RADIOLOGY PER STRETCHER.
--- NOTE | 2020-11-03 12:50 | PC.NURSE ---
pt returned to er room 1
[2020-11-03 13:10] VITALS: BP 110/58; PULSE 102; RESP 16; O2SAT 95
[2020-11-03 13:13] LABS: Appearance Urine Cloudy (Clear); Bilirubin Urine Negative (Negative); Color Urine Yellow (Yellow); Glucose Urine UA Negative (Negative); Ketones Urine Negative (Negative); Leukocyte Esterase Ur Negative (Negative); Nitrate Urine Negative (Negative); Protein Urine Negative (Negative); Urobilinogen Urine 0.2 mg/dL (0.2-1.0); pH Urine 7.5 (5.0-8.0)
[2020-11-03 13:18] LABS: Add Urine Microscopic? YES; Blood Urine Trace-Intact (Negative); RBC Urine 0-2 /hpf (0-2); Squamous Epithelial Cell Urine Occasional /hpf (Few); WBC Urine 0-3 /hpf (0-3)
[2020-11-03 13:19] LABS: Amorphous Sediment Urine Heavy; Bacteria Urine 1+ /hpf; Mucus Urine Few /lpf
[2020-11-03 14:20] VITALS: PULSE 100; RESP 16; O2SAT 95
== END 2020-11-03 14:30 | disposition home or self-care (01) ==
PROVIDERS: Emergency Provider Emergency Medicine; PCP Family Medicine
DX: I26.99 Other pulmonary embolism without acute cor pulmonale (principal); I82.412 Acute embolism and thrombosis of left femoral vein; R82.90 Unspecified abnormal findings in urine; J44.9 Chronic obstructive pulmonary disease, unspecified; I25.10 Atherosclerotic heart disease of native coronary artery without angina pectoris; E78.5 Hyperlipidemia, unspecified; F17.200 Nicotine dependence, unspecified, uncomplicated
CPT/HCPCS: 71275; 74177; 81001; 87086; 87088; 93970; 96372; 99283; 99284; J1650; Q9967

== ENCOUNTER 2020-11-04 05:00 | Observation (INO) | payer MEDICARE, SELFPAY ==
[2020-11-04] VITALS (8 sets, daily range): BP systolic 93–127; BP diastolic 51–79; PULSE 52–115; RESP 16–20; TEMP 36.3–36.8; O2SAT 91–97; BMI 24.0
--- NOTE | ~2020-11-04 | XR_ITS ---
EXAMINATION: XR chest 2V DATE: 11/04/2020 06:05 INDICATION: Chest pain TECHNIQUE: Frontal and lateral views of the chest are obtained COMPARISON: CT from the previous day FINDINGS: There are minimal airspace opacities of the lung bases. There is no pleural effusion or pne umothorax. The cardiomediastinal silhouette is normal. There is moderate thoracic spondylosis. Change s of left total shoulder arthroplasty are noted. IMPRESSION: 1. Bibasilar airspace opacities, likely atelectasis. Reviewed, dictated and finalized at location A. BOARD INSTRUCTOR
--- NOTE | 2020-11-04 05:23 | ED.SOB ---
HPI - SOB/Dyspnea General Chief Complaint: Shortness of Breath/Dyspnea Stated Complaint: Shortness of Breath Time Seen by Provider: 11/04/20 05:23 Source: patient and family Mode of arrival: wheelchair Limitations: no limitations History of Present Illness HPI Narrative: 80-year-old man who was diagnosed earlier today with pulmonary embolism and DVT comes in today because he feels short of breath and has chest pain. It started approximately 2:00 a.m. (I.E., 3 hours ago) states the pain is worse with taking a deep breath. He states he is having difficulty getting about at home. He also complains that he had only a very small amount urine. MD elicited complaint: shortness of breath and chest pain Pertinent past history: COPD, PE and DVT Onset (ago): hour(s) (3) Timing: constant Severity: severe Exacerbating factors: movement and inspiration Relieving factors: rest Known history of: COPD, PE and DVT Associated symptoms: chest pain and lower extremity pain Treatment prior to arrival: none Related Data Home oxygen amount: none Home Medications Medication Instructions Recorded Confirmed Anoro Ellipta 1 inh INHALATION DAILY 10/12/20 11/03/20 paroxetine HCl 40 mg PO DAILY 10/12/20 11/03/20 atorvastatin 80 mg PO DAILY 10/24/20 11/03/20 famotidine 40 mg PO BID 10/24/20 11/03/20 apixaban [Eliquis] 10 mg PO BID 11/04/20 11/04/20 Allergies Allergy/AdvReac Type Severity Reaction Status Date / Time No Known Allergies Allergy Verified 10/12/20 10:31 Review of Systems Constitutional: Constitutional: Denies chills and Denies fever(s) Eyes: Eyes: Denies change in vision and Denies photophobia ENT: Denies nasal congestion and Denies sore throat Cardiovascular: Cardiovascular: Reports chest pain and Denies radiating jaw, neck or arm pain Respiratory: Respiratory: Denies cough and Reports dyspnea Gastrointestinal: Gastrointestinal: Denies abdominal pain, Denies diarrhea, Denies nausea and Denies vomiting Genitourinary: Genitourinary: Denies hematuria, Reports oliguria, Denies urinary frequency and Denies urinary incontinence Musculoskeletal: Musculoskeletal: Denies arthralgias and Denies joint swelling Integumentary/Breasts: Skin/Breast: Denies pruritus, Denies erythema and Denies rash Neurologic: Denies vertigo, Denies dizziness and Denies syncope Hematologic/Lymphatic: Hematologic/Lymphatic: Denies easy bleeding and Denies easy bruising Allergic/Immunologic: Allergic/Immunologic: Denies lip swelling and Denies throat swelling PMF Past Medical History Medical History COPD (chronic obstructive pulmonary disease) Coronary artery disease Dyslipidemia PTSD (post-traumatic stress disorder) Surgical History Surgical History H/O right wrist surgery History of coronary angioplasty with insertion of stent History of left shoulder replacement S/P ORIF (open reduction internal fixation) fracture L wrist S/P right knee arthroscopy Family History Family History Father Cerebrovascular accident Social History Social History Years smoked: 70 Smoking status: Current every day smoker Tobacco type: cigars Alcohol intake: never Substance use: never Gender identity (if verbalized by the patient): Male Spiritual care concerns: No Exam Const: General: alert Nutritional Appearance: thin Orientation/consciousness: patient oriented x3 Limitations: no limitations Other: Moderate acute distress. HENMT: Mouth: Yes moist mucous membranes Throat: posterior oropharynx normal and uvula midline Eyes: Conjunctivae: conjunctivae normal Pupils: Equal, round and reactive pupils present EOM: EOMs intact bilaterally Resp: Effort & Inspection: normal respiratory effort Auscultation: diminished lung
--- NOTE | 2020-11-04 05:27 | ECG_ITS ---
Measurements Intervals [place] Rate: 109 P: 64 MI: 108 QRS: 53 QRSD: 90 T: 2 QT: 293 QTc: 396 Interpretive Statements SINUS TACHYCARDIA WITH SHORT MI INTERVAL ATRIAL AND VENTRICULAR PREMATURE COMPLEXES INFERIOR INFARCT, AGE INDETERMINATE BORDERLINE T WAVE ABNORMALITY- LATERAL LEADS BASELINE WANDER- II, III ABNORMAL ECG Electronically Signed On 11-06-2020 7:15:47 NON MORSE INTERCEPT TECHNICIAN by Henry Mayen D.O.
[2020-11-04] MEDS: MORPHINE SULFATE (*CRX) 2 MG/ML INJ IV PUSH ×2 (05:41→08:38)
[2020-11-04] MEDS: ONDANSETRON INJ 4 MG/2 ML VIAL IV PUSH (05:41)
[2020-11-04 05:48] LABS: Basophils Absolute Auto 0.06 K/mm3 (0.00-0.10); Basophils Percent Auto 0.4 % (0.0-1.0); Eosinophils Absolute Auto 0.09 K/mm3 (0.02-0.50); Eosinophils Percent Auto 0.5 % (1.0-6.0); Hematocrit 39.9 % (37.0-46.0); Hemoglobin 13.1 g/dL (12.4-15.3); Immature Granulocyte Absolute 0.11 K/mm3 (0.00-0.00); Immature Granulocyte Percent A 0.7 % (0.0-0.0); Lymphocytes Percent Auto 7.3 % (18.0-42.0); Mean Corpuscular HGB Conc 32.8 g/dL (32.0-36.0); Mean Corpuscular Hemoglobin 30.8 pg (27.0-31.0); Mean Corpuscular Volume 93.9 fL (78.0-102.0); Mean Platelet Volume 11.1 fl (8.7-11.0); Monocytes Percent Auto 9.1 % (2.0-11.0); Neutrophils Absolute Auto 13.6 K/mm3 (1.7-7.2); Platelet Count Result 209 K/mm3 (150-420); Red Blood Count 4.25 M/mm3 (4.70-6.10); White Blood Count 16.5 K/mm3 (4.8-10.8)
[2020-11-04 06:07] LABS: Alanine Aminotransferase 64 U/L (16-63); Albumin Level 2.1 g/dL (3.4-5.0); Alkaline Phosphatase 78 U/L (46-116); Anion Gap 6 mmol/L (8-16); Aspartate Amino Transferase 28 U/L (15-37); Bilirubin,Total 1.1 mg/dL (0.00-1.00); Blood Urea Nitrogen 16 mg/dL (7-18); Calcium 8.7 mg/dL (8.5-10.1); Carbon Dioxide 28 mmol/L (21-32); Chloride 99 mmol/L (98-108); Estimated CRCL calculation 49 ml/min; Estimated Glomerular Filt Rate 60; Glucose 185 mg/dL (70-99); Lipase 55 U/L (73-393); Osmolality Calculated 282 mOsm/kg (285-295); Potassium 4.4 mmol/L (3.5-5.1); Sodium 133 mmol/L (136-145); Total Protein 6.3 g/dL (6.4-8.2); Troponin I 25.1 ng/L (0.00-60.4)
--- NOTE | 2020-11-04 06:37 | PC.NURSE ---
ERP discussed tests and POC c pt. Orders for 23 hr obs admit received.
--- NOTE | 2020-11-04 07:50 | PC.NURSE ---
Patient brought to floor from ED, transferred to bed per self. Oriented to room and call light.
--- NOTE | 2020-11-04 07:59 | PM.IMHP ---
H&P: HPI History of Present Illness Date/Time: 11/04/20 07:59 Chief Complaint: shortness of breath, chest pain, mid upper abdominal pain Narrative: Tanisha Garcia is a 80 year old male who came to the ER yesterday for increased leg pain after having been with his primary care provider and found to have an elevated D-dimer and was to start his Eliquis. Subsequently, patient returned to the ER for increased shortness of breath and at that time was found to have a PE along with abdominal pain. Patient has history of ischemic bowel. Patient also has some chest pain that was related to his breathing. Patient states that when he was taking a deep breath that is when his chest pain would hit. Patient states pain was lower left rib cage lower right rib cage in upper right ribcage. This morning patient says all of his pain is little better and that he does not have any more abdominal pain at this time. 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 Review of Systems Constitutional: Constitutional: Reports no additional constitutional complaints, Denies fatigue, Denies fever(s) and Denies headache(s) Cardiovascular: Cardiovascular: Reports no additional cardiovascular complaints, Reports chest pain (this is minimal with breathing at this time), Reports leg edema (left leg) and Denies lightheadedness Respiratory: Respiratory: Reports no additional respiratory complaints and Denies dyspnea Gastrointestinal: Gastrointestinal: Reports abdominal pain (mid upper abdomen patient says it is better today) Genitourinary: Genitourinary: Reports oliguria PMF Past Medical History Medical History COPD (chronic obstructive pulmonary disease) Coronary artery disease Dyslipidemia PTSD (post-traumatic stress disorder) Surgical History Surgical History H/O right wrist surgery History of coronary angioplasty with insertion of stent History of left shoulder replacement S/P ORIF (open reduction internal fixation) fracture L wrist S/P right knee arthroscopy Family History Family History Father Cerebrovascular accident Social History Social History Years smoked: 70 Smoking status: Current every day smoker Tobacco type: cigars Alcohol intake: never Substance use: never Gender identity (if verbalized by the patient): Male Spiritual care concerns: No Meds Home Medications and Allergies Home Medications Medication Instructions Recorded Confirmed Type Anoro Ellipta 1 inh INHALATION DAILY 10/12/20 11/04/20 History paroxetine HCl 40 mg PO DAILY 10/12/20 11/04/20 History atorvastatin 80 mg PO DAILY 10/24/20 11/04/20 History famotidine 40 mg PO BID 10/24/20 11/04/20 History prednisone 40 mg PO DAILY #42 tablet 10/26/20 11/04/20 Rx hydrocodone-acetaminophen [[place]] 1 tablet PO Q6H PRN #20 tablet 11/03/20 11/04/20 Rx apixaban [Eliquis] 10 mg PO BID 11/04/20 11/04/20 History Allergies Allergy/AdvReac Type Severity Reaction Status Date / Time No Known Allergies Allergy Verified 10/12/20 10:31 Vital Signs Vital Signs - 24 hr 11/04/20 05:00 11/04/20 05:26 11/04/20 07:21 Temperature 98.2 F 97.5 F L Pulse Rate 110 H 115 H 105 H Respiratory Rate 20 20 Blood Pressure 115/51 L 116/54 L Pulse Oximetry 97 97 93 11/04/20 07:51 Temperature 97.3 F L Pulse Rate 52 L Respiratory Rate 20 Blood Pressure 127/60 Pulse Oximetry 96 Exam Narrative: Exam Narrative: Patient is very proud to be benign a [employer] shoulder. 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 Const: General: cooperative, comfortable, no acute distress, alert and awake Resp: Effort & Inspection: normal r
[2020-11-04] MEDS: ATORVASTATIN 40 MG TABLET 80 MG PO (08:39)
[2020-11-04] MEDS: PARoxetine 20 MG TABLET 40 MG PO (08:39)
[2020-11-04] MEDS: DOCUSATE SODIUM 100 MG CAPSULE PO ×2 (08:39→17:02)
[2020-11-04] MEDS: APIXABAN 2.5 MG TABLET 10 MG PO ×2 (08:39→17:02)
[2020-11-04] MEDS: predniSONE 20 MG TABLET 40 MG PO (08:39)
[2020-11-04] MEDS: FAMOTIDINE 20 MG TABLET 40 MG PO ×2 (08:45→17:02)
[2020-11-04] MEDS: SODIUM CHLORIDE 0.9% IV 1,000 ML 100 ML IV CONT ×2 (08:46→18:14)
--- NOTE | 2020-11-04 09:00 | PC.NURSE ---
left message for pt about need for eval. douglas harper
[2020-11-04 12:08] LABS: Troponin I 21.4 ng/L (0.00-60.4)
[2020-11-04 18:10] LABS: Troponin I 18.7 ng/L (0.00-60.4)
--- NOTE | 2020-11-04 22:20 | PC.NURSE ---
pt has eaten half of his ham sandwich, denies pain at this time, tele sinus rhythm, call light in reach
--- NOTE | 2020-11-04 23:13 | PC.NURSE ---
Woke for vital signs, no pain and only SOB when coughing, telemetry noted to be SR, denies needs, call light in reach of patient
[2020-11-05 00:11] VITALS: PULSE 76
--- NOTE | 2020-11-05 01:10 | PC.NURSE ---
Resting in bed, no chest pain, no sob, telemetry SR, rate pvc noted
--- NOTE | 2020-11-05 02:12 | PC.NURSE ---
No pain, telemetry SR, call light in reach
[2020-11-05] MEDS: SODIUM CHLORIDE 0.9% IV 1,000 ML 100 ML IV CONT (03:26)
[2020-11-05 03:33] VITALS: BP 95/54; PULSE 75; RESP 18; TEMP 36.8; O2SAT 94
[2020-11-05 03:34] VITALS: PULSE 75
--- NOTE | 2020-11-05 03:35 | PC.NURSE ---
Awake and conversive, states is an early riser, no chest pain, no sob
--- NOTE | 2020-11-05 04:30 | PC.NURSE ---
No chest pain, telemetry SR, no sob noted, call light and personal items in reach
[2020-11-05 06:12] LABS: Basophils Absolute Auto 0.03 K/mm3 (0.00-0.10); Basophils Percent Auto 0.3 % (0.0-1.0); Eosinophils Absolute Auto 0.06 K/mm3 (0.02-0.50); Eosinophils Percent Auto 0.5 % (1.0-6.0); Hematocrit 33.4 % (37.0-46.0); Hemoglobin 10.6 g/dL (12.4-15.3); Immature Granulocyte Absolute 0.08 K/mm3 (0.00-0.00); Immature Granulocyte Percent A 0.7 % (0.0-0.0); Lymphocytes Absolute Auto 1.26 K/mm3 (1.10-4.50); Lymphocytes Percent Auto 10.8 % (18.0-42.0); Mean Corpuscular HGB Conc 31.7 g/dL (32.0-36.0); Mean Corpuscular Hemoglobin 29.9 pg (27.0-31.0); Mean Corpuscular Volume 94.1 fL (78.0-102.0); Mean Platelet Volume 11.4 fl (8.7-11.0); Monocytes Absolute Auto 0.93 K/mm3 (0.10-0.90); Monocytes Percent Auto 7.9 % (2.0-11.0); Neutrophils Absolute Auto 9.4 K/mm3 (1.7-7.2); Neutrophils Percent Auto 79.8 % (50.0-70.0); Platelet Count Result 168 K/mm3 (150-420); Red Blood Count 3.55 M/mm3 (4.70-6.10); Red Cell Distribution Width 13.6 % (11.6-14.4); White Blood Count 11.7 K/mm3 (4.8-10.8)
--- NOTE | 2020-11-05 06:20 | PC.NURSE ---
Rested fairly well, no chest pain and no sob, denies pain at rest
[2020-11-05 06:21] LABS: Anion Gap 8 mmol/L (8-16); Blood Urea Nitrogen 15 mg/dL (7-18); Calcium 7.9 mg/dL (8.5-10.1); Carbon Dioxide 27 mmol/L (21-32); Chloride 104 mmol/L (98-108); Estimated CRCL calculation 65 ml/min; Estimated Glomerular Filt Rate > 60; Glucose 117 mg/dL (70-99); Osmolality Calculated 289 mOsm/kg (285-295); Potassium 4.2 mmol/L (3.5-5.1); Sodium 139 mmol/L (136-145)
[2020-11-05 08:00] VITALS: BP 123/80; PULSE 74; PULSE 94; RESP 18; TEMP 37.1; O2SAT 96
[2020-11-05] MEDS: predniSONE 20 MG TABLET 40 MG PO (09:33)
[2020-11-05] MEDS: APIXABAN 2.5 MG TABLET 10 MG PO (09:33)
[2020-11-05] MEDS: PARoxetine 20 MG TABLET 40 MG PO (09:33)
[2020-11-05] MEDS: ATORVASTATIN 40 MG TABLET 80 MG PO (09:33)
[2020-11-05] MEDS: DOCUSATE SODIUM 100 MG CAPSULE PO (09:33)
[2020-11-05] MEDS: FAMOTIDINE 20 MG TABLET 40 MG PO (09:33)
--- NOTE | 2020-11-05 10:37 | PM.DS ---
DS: Admitting Diagnosis Admitting Diagnosis Admitting Diagnosis: PE, DVT, chest pain <Rob SalazarCourtney Noeandre SENIOR DEVOPS ENGINEER-C - Last Filed: 11/05/20 10:57> DS: Discharge Diagnosis Discharge Diagnosis (1) Pulmonary embolism: Qualifiers: Acute cor pulmonale presence: without acute cor pulmonale Chronicity: acute Pulmonary embolism type: unspecified Qualified Code(s): I26.99 - Other pulmonary embolism without acute cor pulmonale <Rob SalazarCourtney Duron SENIOR DEVOPS ENGINEER-C - Last Filed: 11/05/20 10:57> Code(s): I26.99 - Other pulmonary embolism without acute cor pulmonale <Rob SalazarCourtney Duron SENIOR DEVOPS ENGINEER-C - Last Filed: 11/05/20 10:57> Status: Acute <Rob Liuandre SENIOR DEVOPS ENGINEER-C - Last Filed: 11/05/20 10:57> Assessment and Plan: 11/04/2020 patient is currently on the starting dose of Eliquis 10 mg b.i.d. which was started on 11/03/2020, currently on room air no increased oxygen demand, no labored breathing, no increased work of breathing, SpO2 93% or better 11/05/2020 continue Eliquis on discharge patient will need to follow-up with his primary care provider within a week, patient denies any respiratory difficulties no shortness of breath no increased work of breathing when up in active <Rob SalazarHARIS KelleyN-C - Last Filed: 11/05/20 10:57> (2) DVT (deep venous thrombosis): Qualifiers: Affected thrombotic vein of extremity: unspecified lower extremity proximal vein Chronicity: acute DVT location: lower extremity Laterality: left Qualified Code(s): I82.4Y2 - Acute embolism and thrombosis of unspecified deep veins of left proximal lower extremity <Rob SalazarCourtney Duron SENIOR DEVOPS ENGINEER-C - Last Filed: 11/05/20 10:57> Code(s): I82.409 - Acute embolism and thrombosis of unspecified deep veins of unspecified lower extremity <Rob MarieCourtney Duron SENIOR DEVOPS ENGINEER-C - Last Filed: 11/05/20 10:57> Status: Acute <Rob SalazarCourtney Duron SENIOR DEVOPS ENGINEER-C - Last Filed: 11/05/20 10:57> Assessment and Plan: 11/04/2020 patient currently on starting dose of Eliquis 10 mg b.i.d. which was started on 11/03/2020, left lower extremity 1+ pitting edema, does have sensitivity to touch, encourage patient to wear ADAM hose however at this time he does not want to wear them 11/05/2020 will continue Eliquis at discharge as well as ADAM hose patient will need follow-up with his primary care provider within a week <MADDISON Calderón - Last Filed: 11/05/20 10:57> (3) COPD (chronic obstructive pulmonary disease): Code(s): J44.9 - Chronic obstructive pulmonary disease, unspecified <MADDISON Calderón - Last Filed: 11/05/20 10:57> Status: Acute <MADDISON Calderón - Last Filed: 11/05/20 10:57> Assessment and Plan: 11/04/2020 continue patient on his Anoro Ellipta as well as his prednisone 40 mg p.o. daily, currently respirations and breathing ability are at patient's baseline, patient is without cough, lungs are clear, SpO2 greater than 93% on room air 11/05/2020 patient's COPD is stable, patient is on room air with SpO2 greater than 95% today <MADDISON Calderón - Last Filed: 11/05/20 10:57> (4) PTSD (post-traumatic stress disorder): Code(s): F43.10 - Post-traumatic stress disorder, unspecified <MADDISON Calderón - Last Filed: 11/05/20 10:57> Status: Acute <MADDISON Calderón - Last Filed: 11/05/20 10:57> Assessment and Plan: 11/04/2020 will continue patient's paroxetine <MADDISON Calderón - Last Filed: 11/05/20 10:57> (5) Chest pain: Qualifiers: Chest pain type: chest pain on breathing Qualified Code(s): R07.1 - Chest pain on breathing <MADDISON Calderón - Last Filed: 11/05/20 10:57> Code(s): R07.9 - Chest pain, unspecified <MADDISON Calderón - Last Filed: 11/05/20 10:57> Status: Acute <MADDISON Calderón - Last Filed: 11/05/20 10:57> Assessment and Plan: 11/04/2020 initial troponin is norm
[2020-11-05 12:00] VITALS: BP 113/60; PULSE 78; RESP 20; TEMP 36.6; O2SAT 96
--- NOTE | 2020-11-07 12:04 | PC.NURSE ---
Pt states he received and understood his discharge instructions. Pt was readmitted the day after discharge for abdominal pain.
== END 2020-11-05 14:15 | disposition home or self-care (01) ==
LOC: CHSED 06:35 → CHS2ND 06:58
PROVIDERS: Admitting Provider Emergency Medicine; Emergency Provider Emergency Medicine; PCP Family Medicine; Visit Provider Emergency Medicine
DX: I26.99 Other pulmonary embolism without acute cor pulmonale (principal); I82.402 Acute embolism and thrombosis of unspecified deep veins of left lower extremity; J44.9 Chronic obstructive pulmonary disease, unspecified; I25.10 Atherosclerotic heart disease of native coronary artery without angina pectoris; E78.5 Hyperlipidemia, unspecified; F43.10 Post-traumatic stress disorder, unspecified; F17.290 Nicotine dependence, other tobacco product, uncomplicated; Z95.5 Presence of coronary angioplasty implant and graft; Z79.01 Long term (current) use of anticoagulants
CPT/HCPCS: 36415; 71046; 80048; 80053; 83690; 83880; 84484; 85025; 93005; 96361; 96374; 96375; 96376; 97161; 99285; A9270; G0378; J2270; J2405; J7030; J7512

== ENCOUNTER 2020-11-06 15:36 | Inpatient (IN) | payer MEDICARE, SELFPAY ==
[2020-11-06] VITALS (7 sets, daily range): BP systolic 101–114; BP diastolic 56–72; PULSE 62–90; RESP 16–20; TEMP 36.1–36.9; O2SAT 94–95; BMI 25.2
--- NOTE | ~2020-11-06 | CT_ITS ---
EXAMINATION: CT abdomen pelvis w con DATE: 11/06/2020 17:12 INDICATION: Abdominal pain and cramping TECHNIQUE: Computed tomography (CT) of the abdomen and pelvis was performed with 100 cc Omnipaque 350 intravenous contrast. Automated exposure control and iterative reconstruction technique were employe d. Exam dose: 654.98 mGy-cm total exam DLP. COMPARISON: 11/03/2020 CTA chest and abdomen and pelvis 10/24/2020 CT abdomen pelvis noncontrast examination FINDINGS: There is primarily dependent right lower lobe infiltrate and atelectasis. There is mild dep endent left basilar lower lobe atelectasis. There are minimal pleural effusions. Cardiomegaly. No pericardial effusion. Small sliding hiatal hernia. The liver, gallbladder, bile ducts, spleen, pancreas and pancreatic duct are unremarkable. No adrenal mass lesion is evident There are multiple bilateral small probable bilateral renal cysts. No urinary tract calculus or hydroureteronephrosis. There is moderate diffuse bladder wall thickening. There is prostate enlargement. Approximately 3.7 cm fusiform infrarenal abdominal aortic aneurysm. The There is calcification of the origins of the celiac and particularly superior mesenteric arteries. No intraperitoneal or retroperitoneal or pelvic mass lesion or adenopathy. There is mild free fluid primarily in the pelvic cavity. Diverticulosis of the sigmoid colon; no CT evidence of diverticulitis. Fluid levels are noted in the cecum and ascending colon. Normal appendix. There is prominent edema/thickening of the wall of a cont inuous segment of the distal small bowel, sparing the terminal ileum. Consider infectious, inflammato ry or ischemic etiology. IMPRESSION: Nonspecific thickening/edema of a long continuous segment of distal ileum, without invol vement of terminal ileum; consider inflammatory, infectious or ischemic etiology Diverticulosis of the sigmoid colon; no CT evidence of diverticulitis Normal appendix Approximately 3.7 cm fusiform infrarenal abdominal aortic aneurysm Bilateral probable small scattered renal cyst Small sliding hiatal hernia Cardiomegaly Dependent right lower lobe infiltrate and atelectasis; mild dependent left basilar lower lobe atelect asis Reviewed, dictated and finalized at [facility] Reviewed, dictated and finalized at [facility] CIAN INSTRUMENTAL IMPRESSION: Nonspecific thickening/edema of a long continuous segment of dista l ileum, without involvement of terminal ileum; consider inflammatory, infectio us or ischemic etiology Diverticulosis of the sigmoid colon; no CT evidence of diverticulitis Normal appendix Approximately 3.7 cm fusiform infrarenal abdominal aortic aneurysm Bilateral probable small scattered renal cyst Small sliding hiatal hernia Cardiomegaly Dependent right lower lobe infiltrate and atelectasis; mild dependent left basi lar lower lobe atelectasis
--- NOTE | 2020-11-06 16:21 | ECG_ITS ---
Measurements Intervals [place] Rate: 89 P: 76 HI: 136 QRS: 71 QRSD: 97 T: -34 QT: 331 QTc: 403 Interpretive Statements SINUS RHYTHM SUPRAVENTRICULAR TRIGEMINY MINIMAL Q WAVES- INFERIOR LEADS BORDERLINE ST-T WAVE ABNORMALITY- INFERIOR LEADS BASELINE ARTIFACT- III, AVF, V6 ABNORMAL ECG Electronically Signed On 11-06-2020 19:29:51 LYFT DRIVER by Henry Mayen D.O.
--- NOTE | 2020-11-06 16:23 | PC.NURSE ---
patient arrived to be registered [id number], patient to room 1608. screaming about the wait time. Patient requesting supper & a blanket.
[2020-11-06 16:50] LABS: Basophils Absolute Auto 0.03 K/mm3 (0.00-0.10); Basophils Percent Auto 0.2 % (0.0-1.0); Eosinophils Absolute Auto 0.12 K/mm3 (0.02-0.50); Hematocrit 38.9 % (37.0-46.0); Hemoglobin 12.5 g/dL (12.4-15.3); Immature Granulocyte Absolute 0.06 K/mm3 (0.00-0.00); Immature Granulocyte Percent A 0.5 % (0.0-0.0); Lymphocytes Percent Auto 9.8 % (18.0-42.0); Mean Corpuscular HGB Conc 32.1 g/dL (32.0-36.0); Mean Corpuscular Volume 93.3 fL (78.0-102.0); Mean Platelet Volume 11.4 fl (8.7-11.0); Monocytes Percent Auto 5.7 % (2.0-11.0); Neutrophils Absolute Auto 10.2 K/mm3 (1.7-7.2); Neutrophils Percent Auto 82.8 % (50.0-70.0); Platelet Count Result 255 K/mm3 (150-420); Red Blood Count 4.17 M/mm3 (4.70-6.10); Red Cell Distribution Width 13.7 % (11.6-14.4); White Blood Count 12.3 K/mm3 (4.8-10.8)
[2020-11-06 17:09] LABS: Alanine Aminotransferase 203 U/L (16-63); Albumin Level 1.9 g/dL (3.4-5.0); Alkaline Phosphatase 90 U/L (46-116); Anion Gap 7 mmol/L (8-16); Aspartate Amino Transferase 101 U/L (15-37); Bilirubin,Total 0.4 mg/dL (0.00-1.00); Blood Urea Nitrogen 14 mg/dL (7-18); Calcium 8.1 mg/dL (8.5-10.1); Carbon Dioxide 28 mmol/L (21-32); Chloride 104 mmol/L (98-108); Estimated CRCL calculation 58 ml/min; Estimated Glomerular Filt Rate > 60; Glucose 112 mg/dL (70-99); Lipase 208 U/L (73-393); Osmolality Calculated 289 mOsm/kg (285-295); Potassium 3.7 mmol/L (3.5-5.1); Sodium 139 mmol/L (136-145); Troponin I 24.2 ng/L (0.00-60.4)
[2020-11-06 17:12] LABS: Lactic Acid Reflex 1.4 mmol/L (0.4-2.0)
[2020-11-06] MEDS: SODIUM CHLORIDE 0.9% IV 1,000 ML 999 ML IV CONT (17:31)
[2020-11-06] MEDS: KETOROLAC 30 MG/ML VIAL (*BKC) IV PUSH (17:31)
[2020-11-06 17:51] LABS: Appearance Urine Clear (Clear); Bilirubin Urine Negative (Negative); Color Urine Yellow (Yellow); Glucose Urine UA Negative (Negative); Ketones Urine Negative (Negative); Leukocyte Esterase Ur Negative LEU/UL (Negative); Nitrate Urine Negative (Negative); Protein Urine Negative (Negative); Urobilinogen Urine 0.2 mg/dL (0.2-1.0); pH Urine 5.5 (5.0-8.0)
[2020-11-06 17:55] LABS: Add Urine Microscopic? YES; Bacteria Urine Trace /hpf; Blood Urine Trace-Intact (Negative); Mucus Urine Few /lpf; RBC Urine 0-2 /hpf (0-2); Squamous Epithelial Cell Urine Rare /hpf (Few); WBC Urine None seen /hpf (0-3)
--- NOTE | 2020-11-06 17:59 | ED.ABDPAIN ---
HPI - Abdominal Pain General Chief Complaint: Abdominal Pain Stated Complaint: stomach pain,trouble standing Source: patient Limitations: no limitations History of Present Illness HPI narrative: this an 80-year-old gentleman that presents with abdominal pain lower abdomen aching recently discharge, actually discharged yesterday on November 05, with a history of COPD or recently diagnosed pulmonary embolism it and is on Eliquis. Was admitted had abdominal pain on previous admission which showed mesenteric ischemia currently having belly pain with no dysuria no fever chills some mild nausea had tried pain medicine [id number] with minimal relief there is currently no diarrhea or constipation. Currently no chest pain no shortness of breath, has nausea with no vomiting. previous CT scan did show some inflammatory with ischemia. MD elicited complaint: abdominal pain Onset (ago): day(s) Pain Consistency: constant Location: periumbilical Severity: moderate Pain scale (0-10): 8 Quality: cramping and aching Migration to: no migration Exacerbating factors: nothing Relieving factors: nothing Associated symptoms: nausea Related Data Home Medications Medication Instructions Recorded Confirmed Anoro Ellipta 1 inh INHALATION DAILY 10/12/20 11/04/20 paroxetine HCl 40 mg PO DAILY 10/12/20 11/04/20 atorvastatin 80 mg PO DAILY 10/24/20 11/04/20 famotidine 40 mg PO BID 10/24/20 11/04/20 Eliquis 10 mg PO BID 11/04/20 11/04/20 Allergies Allergy/AdvReac Type Severity Reaction Status Date / Time No Known Allergies Allergy Verified 10/12/20 10:31 Review of Systems Review of Systems: All systems reviewed & are unremarkable except as noted in HPI and below PMFSH Past Medical History Medical History COPD (chronic obstructive pulmonary disease) Coronary artery disease Dyslipidemia PTSD (post-traumatic stress disorder) Surgical History Surgical History H/O right wrist surgery History of coronary angioplasty with insertion of stent History of left shoulder replacement S/P ORIF (open reduction internal fixation) fracture L wrist S/P right knee arthroscopy Family History Family History Father Cerebrovascular accident Social History Social History Years smoked: 70 Smoking status: Current every day smoker Tobacco type: cigars Alcohol intake: never Substance use: never Gender identity (if verbalized by the patient): Male Spiritual care concerns: No Exam Const: General: no acute distress and alert Orientation/consciousness: patient oriented x3 HENMT: Head: normal to inspection and contusion Eyes: Conjunctivae: conjunctivae normal Pupils: Equal, round and reactive pupils present Neck: Neck: normal visual inspection, no lymphadenopathy and no meningeal signs Chest: Chest palpation & inspection: normal inspection of the chest Resp: Effort & Inspection: normal respiratory effort Cardio: Rate: regular rate Rhythm: regular rhythm GI: GI Palp: Yes Soft to palpation and Yes Tenderness to palpation present (GI) : Testes: Testes normal Back/Spine/Pelvis: Back: no CVA tenderness Skin: General skin exam: normal color Rashes: no rashes Neuro: General: patient oriented x3 and moves all extremities Extrem: General: normal to inspection and no pedal edema Psych: Appearance: grossly normal Mental Status: mental status grossly normal Affect: normal affect Course Course Emergency Course: reassessment of patient after receiving IV Toradol his pain has improved slightly but continues to have discomfort in his abdomen currently no nausea and reviewed his blood work and his CT scan advised admission with IV fluids pain control. Vital Signs Vital signs: Vital Signs Temperature 36.4
--- NOTE | 2020-11-06 18:18 | PC.NURSE ---
patient screaming & they want to see ct scan & it all explained to them...its there right. MD been in room several times explaining everything. Questionable patient and mental ability to comprehend
--- NOTE | 2020-11-06 19:20 | PC.NURSE ---
Pt to room 203B per WC from ER. Pt A&Ox3. Admitted for abdominal pain. Pt denies pain at present. Pt states he was a patient here over the weekend and has been in [facility] recently as well. Pt states he's been in the hospital 17 days of the last 25 for ischemic bowel. Plan of care discussed, and the reason for the NPO order. Pt understands plan of care but would still like to eat. Pt states his will bring his inhaler and some clothes in the morning. Pt refuses to put on a gown, he's wearing his bibs and a Tshirt and states they are more comfortable that a gown. Oriented to room. Call may in reach, reminded to call with needs.
[2020-11-06] MEDS: SODIUM CHLORIDE 0.9% IV 1,000 ML 100 ML IV CONT (19:25)
--- NOTE | 2020-11-06 23:37 | PC.NURSE ---
Denies abdominal pain, remains NPO at this time, fluids infusing
--- NOTE | 2020-11-07 01:59 | PC.NURSE ---
fluids infusing, no abdominal pain at thsi time, no n/v
[2020-11-07 04:00] VITALS: BP 114/72; PULSE 72; RESP 18; TEMP 36.1; O2SAT 95
[2020-11-07] MEDS: SODIUM CHLORIDE 0.9% IV 1,000 ML 100 ML IV CONT ×2 (05:11→17:15)
--- NOTE | 2020-11-07 05:45 | PC.NURSE ---
Ambulated to bathroom, steady gate, no evidence of pain, had a small, almost normal bm
[2020-11-07 05:52] LABS: Basophils Absolute Auto 0.03 K/mm3 (0.00-0.10); Basophils Percent Auto 0.4 % (0.0-1.0); Eosinophils Absolute Auto 0.22 K/mm3 (0.02-0.50); Eosinophils Percent Auto 2.8 % (1.0-6.0); Hematocrit 35.6 % (37.0-46.0); Hemoglobin 11.5 g/dL (12.4-15.3); Immature Granulocyte Absolute 0.03 K/mm3 (0.00-0.00); Immature Granulocyte Percent A 0.4 % (0.0-0.0); Lymphocytes Absolute Auto 1.52 K/mm3 (1.10-4.50); Lymphocytes Percent Auto 19.4 % (18.0-42.0); Mean Corpuscular HGB Conc 32.3 g/dL (32.0-36.0); Mean Corpuscular Hemoglobin 30.4 pg (27.0-31.0); Mean Corpuscular Volume 94.2 fL (78.0-102.0); Mean Platelet Volume 11.4 fl (8.7-11.0); Monocytes Absolute Auto 0.53 K/mm3 (0.10-0.90); Monocytes Percent Auto 6.8 % (2.0-11.0); Neutrophils Absolute Auto 5.5 K/mm3 (1.7-7.2); Neutrophils Percent Auto 70.2 % (50.0-70.0); Platelet Count Result 228 K/mm3 (150-420); Red Blood Count 3.78 M/mm3 (4.70-6.10); Red Cell Distribution Width 13.9 % (11.6-14.4); White Blood Count 7.9 K/mm3 (4.8-10.8)
[2020-11-07 06:13] LABS: Alanine Aminotransferase 147 U/L (16-63); Albumin Level 1.7 g/dL (3.4-5.0); Alkaline Phosphatase 78 U/L (46-116); Anion Gap 6 mmol/L (8-16); Aspartate Amino Transferase 50 U/L (15-37); Bilirubin,Total 0.4 mg/dL (0.00-1.00); Blood Urea Nitrogen 14 mg/dL (7-18); Calcium 7.8 mg/dL (8.5-10.1); Carbon Dioxide 27 mmol/L (21-32); Chloride 109 mmol/L (98-108); Estimated CRCL calculation 60 ml/min; Estimated Glomerular Filt Rate > 60; Glucose 78 mg/dL (70-99); Osmolality Calculated 293 mOsm/kg (285-295); Potassium 5.3 mmol/L (3.5-5.1); Sodium 142 mmol/L (136-145); Total Protein 4.6 g/dL (6.4-8.2)
[2020-11-07 06:19] LABS: Lactic Acid Reflex 1.3 mmol/L (0.4-2.0)
[2020-11-07 08:00] VITALS: BP 129/67; PULSE 76; RESP 18; TEMP 36.5; O2SAT 96
[2020-11-07] MEDS: APIXABAN 2.5 MG TABLET 10 MG PO ×2 (08:16→16:25)
[2020-11-07] MEDS: predniSONE 20 MG TABLET 40 MG PO (08:16)
[2020-11-07] MEDS: PARoxetine 20 MG TABLET 40 MG PO (08:16)
[2020-11-07] MEDS: metroNIDAZOLE 500 MG/ISO 100ML 500 MG/100 ML BAG 100 MG IVPB ×3 (08:17→23:15)
[2020-11-07] MEDS: FAMOTIDINE 20 MG TABLET 40 MG PO ×2 (08:17→16:25)
--- NOTE | 2020-11-07 09:11 | PM.IMHP ---
H&P: HPI History of Present Illness Date/Time: 11/07/20 09:11 <CARLOS EDUARDO Woods - Last Filed: 11/07/20 09:52> Chief Complaint: -Abdominal pain <CARLOS EDUARDO Woods - Last Filed: 11/07/20 09:52> Narrative: Tanisha Garcia is a 80 year old male abdominal pain. pMX PE, COPD, CAD, dyslipidemia, and PTSD. Patient was currently admitted into our hospital on 10/25/2020 due to abdominal pain with vomiting and blood in his stool imaging indicated MAT(mesenteric artery thrombosis) patient was transferred to [facility] in [place] seen by their general surgeon. At that time patient was medically managed no surgical intervention needed. Patient was discharged on 10/26/2020. Patient later went to his primary care physician due to lower extremity pain and was found to have elevated D-dimer and started on Eliquis at that time. patient then presented back to the ED on 11/03/2020 with the shortness of breath, chest pain and abdominal pain. Patient was discharged on 11/05/2020. Patient is back today due to abdominal pain. CT did indicate edema of the distal ileum. Patient will be admitted and treated with Rocephin, Flagyl and prednisone due to multiple readmissions. The patient denies SOB, CP, palpitation, extremity numbness, lightheadedness, dizziness, constipation, diarrhea, chills, or fever. This document was completed by using [employer] speech recognition software, therefore bias cutting machine operator vertical variances may occur. Despite proofreading, typographical errors may also occur. <CARLOS EDUARDO Woods - Last Filed: 11/07/20 09:52> Review of Systems Review of Systems: All systems reviewed & are unremarkable except as noted in HPI and below (10 point system review) <CARLOS EDUARDO Woods - Last Filed: 11/07/20 09:52> [facility] Past Medical History Medical History: Medical History COPD (chronic obstructive pulmonary disease) Coronary artery disease Dyslipidemia PTSD (post-traumatic stress disorder) <CARLOS EDUARDO Woods - Last Filed: 11/07/20 09:52> Surgical History Surgical History: Surgical History H/O right wrist surgery History of coronary angioplasty with insertion of stent History of left shoulder replacement S/P ORIF (open reduction internal fixation) fracture L wrist S/P right knee arthroscopy <CARLOS EDUARDO Woods - Last Filed: 11/07/20 09:52> Family History Family History: Family History Father Cerebrovascular accident <CARLOS EDUARDO Woods - Last Filed: 11/07/20 09:52> Social History Social History: Social History Years smoked: 70 Smoking status: Current every day smoker Tobacco type: cigars Second hand tobacco smoke exposure: No (Smokes 1 cigar a day.) Alcohol intake: never Substance use: never Gender identity (if verbalized by the patient): Male Spiritual care concerns: No <CARLOS EDUARDO Woods - Last Filed: 11/07/20 09:52> Meds Home Medications and Allergies Home medications: Home Medications Medication Instructions Recorded Confirmed Type Anoro Ellipta 1 inh INHALATION DAILY 10/12/20 11/06/20 History paroxetine HCl 40 mg PO DAILY 10/12/20 11/06/20 History atorvastatin [Lipitor] 80 mg PO DAILY 10/24/20 11/06/20 History famotidine [Pepcid] 40 mg PO BID 10/24/20 11/06/20 History prednisone 40 mg PO DAILY #42 tablet 10/26/20 11/06/20 Rx hydrocodone-acetaminophen [[place]] 1 tablet PO Q6H PRN #20 tablet 11/03/20 11/06/20 Rx Eliquis 10 mg PO BID 11/04/20 11/06/20 History <CARLOS EDUARDO Woods - Last Filed: 11/07/20 09:52> Allergies/Adverse reactions: Allergies Allergy/AdvReac Type Severity Reaction Status Date / Time No Known Allergies Allergy Verified 10/12/20 10:31 <Luis Alberto Holley
[2020-11-07] MEDS: TAMSULOSIN HCL 0.4 MG CAPSULE PO (10:21)
[2020-11-07 12:00] VITALS: BP 121/58; PULSE 68; RESP 20; TEMP 36.7; O2SAT 98
[2020-11-07] MEDS: ONDANSETRON INJ 4 MG/2 ML VIAL IV PUSH ×3 (12:56→23:15)
[2020-11-07] MEDS: HYDROmorphone HCL INJ (*CRX) 2 MG/ML VIAL 0.5 MG IV PUSH (12:57)
[2020-11-07 15:31] VITALS: BP 90/52; PULSE 61; RESP 18; TEMP 36.4; O2SAT 92
[2020-11-07 20:00] VITALS: BP 112/70; PULSE 76; RESP 18; TEMP 36.7; O2SAT 96
[2020-11-08] VITALS: BP 109/74; PULSE 72; RESP 18; TEMP 37.1; O2SAT 96
[2020-11-08] MEDS: SODIUM CHLORIDE 0.9% IV 1,000 ML 100 ML IV CONT (02:19)
[2020-11-08 04:00] VITALS: BP 115/60; PULSE 61; RESP 18; TEMP 36.6; O2SAT 96
[2020-11-08 05:45] LABS: Hematocrit 33.5 % (37.0-46.0); Hemoglobin 10.6 g/dL (12.4-15.3); Mean Corpuscular HGB Conc 31.6 g/dL (32.0-36.0); Mean Corpuscular Hemoglobin 29.7 pg (27.0-31.0); Mean Corpuscular Volume 93.8 fL (78.0-102.0); Mean Platelet Volume 11.3 fl (8.7-11.0); Platelet Count Result 256 K/mm3 (150-420); Red Blood Count 3.57 M/mm3 (4.70-6.10); Red Cell Distribution Width 13.8 % (11.6-14.4); White Blood Count 8.9 K/mm3 (4.8-10.8)
[2020-11-08 06:05] LABS: Alanine Aminotransferase 95 U/L (16-63); Albumin Level 1.6 g/dL (3.4-5.0); Alkaline Phosphatase 69 U/L (46-116); Anion Gap 6 mmol/L (8-16); Aspartate Amino Transferase 24 U/L (15-37); Bilirubin,Total 0.2 mg/dL (0.00-1.00); Blood Urea Nitrogen 15 mg/dL (7-18); Calcium 7.3 mg/dL (8.5-10.1); Carbon Dioxide 28 mmol/L (21-32); Chloride 108 mmol/L (98-108); Estimated CRCL calculation 62 ml/min; Estimated Glomerular Filt Rate > 60; Glucose 112 mg/dL (70-99); Osmolality Calculated 295 mOsm/kg (285-295); Potassium 3.9 mmol/L (3.5-5.1); Sodium 142 mmol/L (136-145); Total Protein 4.8 g/dL (6.4-8.2)
[2020-11-08 08:00] VITALS: BP 120/64; PULSE 86; RESP 20; TEMP 36.8; O2SAT 97
[2020-11-08] MEDS: metroNIDAZOLE 500 MG/ISO 100ML 500 MG/100 ML BAG 100 MG IVPB (08:57)
[2020-11-08] MEDS: APIXABAN 2.5 MG TABLET 10 MG PO (08:59)
[2020-11-08] MEDS: PARoxetine 20 MG TABLET 40 MG PO (09:00)
[2020-11-08] MEDS: TAMSULOSIN HCL 0.4 MG CAPSULE PO (09:00)
[2020-11-08] MEDS: predniSONE 20 MG TABLET 40 MG PO (09:00)
--- NOTE | 2020-11-08 09:52 | PM.DS ---
DS: Admitting Diagnosis Admitting Diagnosis Admitting Diagnosis: Colitis <CARLOS EDUARDO Woods - Last Filed: 11/08/20 11:16> DS: Discharge Diagnosis Discharge Diagnosis (1) Colitis: Code(s): K52.9 - Noninfective gastroenteritis and colitis, unspecified <CARLOS EDUARDO Woods - Last Filed: 11/08/20 11:16> Status: Acute <CARLOS EDUARDO Woods - Last Filed: 11/08/20 11:16> Assessment and Plan: Refer to abdominal pain <CARLOS EDUARDO Woods - Last Filed: 11/08/20 11:16> (2) Edema of small intestine: Code(s): K63.89 - Other specified diseases of intestine <CARLOS EDUARDO Woods - Last Filed: 11/08/20 11:16> Status: Acute <CARLOS EDUARDO Woods - Last Filed: 11/08/20 11:16> Assessment and Plan: Refer to abdominal pain <CARLOS EDUARDO Woods - Last Filed: 11/08/20 11:16> (3) Abdominal pain: Qualifiers: Abdominal location: generalized Qualified Code(s): R10.84 - Generalized abdominal pain <CARLOS EDUARDO Woods - Last Filed: 11/08/20 11:16> Code(s): R10.9 - Unspecified abdominal pain <CARLOS EDUARDO Woods - Last Filed: 11/08/20 11:16> Status: Acute <CARLOS EDUARDO Woods - Last Filed: 11/08/20 11:16> Assessment and Plan: Resolved Due to edema of the small intestine caused by inflammation versus infection versus ischemic CT indicates Nonspecific thickening/edema of a long continuous segment of distal ileum, without involvement of terminal ileum; consider inflammatory, infectious or ischemic etiology Continue Flagyl and prednisone started cefdinir <CARLOS EDUARDO Woods - Last Filed: 11/08/20 11:16> (4) Pulmonary embolism: Qualifiers: Acute cor pulmonale presence: without acute cor pulmonale Chronicity: acute Pulmonary embolism type: unspecified Qualified Code(s): I26.99 - Other pulmonary embolism without acute cor pulmonale <Luis Alberto Gómez RELIEF MATE-C - Last Filed: 11/08/20 11:16> Code(s): I26.99 - Other pulmonary embolism without acute cor pulmonale <Luis Alberto Gómez RELIEF MATE-C - Last Filed: 11/08/20 11:16> Status: Acute <Luis Alberto Gómez RELIEF MATE-C - Last Filed: 11/08/20 11:16> Assessment and Plan: Continue Eliquis <Luis Alberto Gómez RELIEF MATE-C - Last Filed: 11/08/20 11:16> (5) DVT (deep venous thrombosis): Qualifiers: Affected thrombotic vein of extremity: unspecified lower extremity proximal vein Chronicity: acute DVT location: lower extremity Laterality: left Qualified Code(s): I82.4Y2 - Acute embolism and thrombosis of unspecified deep veins of left proximal lower extremity <Luis Alberto Gómez RELIEF MATE-C - Last Filed: 11/08/20 11:16> Code(s): I82.409 - Acute embolism and thrombosis of unspecified deep veins of unspecified lower extremity <Luis Alberto Gómez RELIEF MATE-C - Last Filed: 11/08/20 11:16> Status: Acute <Luis Alberto Gómez RELIEF MATE-C - Last Filed: 11/08/20 11:16> Assessment and Plan: Continue Eliquis <Luis Alberto Gómez RELIEF MATE-C - Last Filed: 11/08/20 11:16> (6) Chest pain: Qualifiers: Chest pain type: chest pain on breathing Qualified Code(s): R07.1 - Chest pain on breathing <Luis Alberto Gómez RELIEF MATE-C - Last Filed: 11/08/20 11:16> Code(s): R07.9 - Chest pain, unspecified <Luis Alberto GómezTYESHAP-C - Last Filed: 11/08/20 11:16> Status: Acute <Luis Alberto Gómez RELIEF MATE-C - Last Filed: 11/08/20 11:16> Assessment and Plan: Resolved Not believed to be cardiac related EKG sinus rhythm heart rate of 89 Troponin within normal limits <Luis Alberto BaxterEDELMIRA Mtz-C - Last Filed: 11/08/20 11:16> (7) Coronary artery disease 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
[2020-11-08] MEDS: FAMOTIDINE 20 MG TABLET 40 MG PO (10:29)
--- NOTE | 2020-11-08 11:53 | PC.NURSE ---
Saline lock removed from left ac cath removed intact. Patient was notified to watch for s/s of infection and he verbalizes understanding. Discharge instructions given to patient and to and they verbalize understanding.
--- NOTE | 2020-11-08 12:40 | PC.NURSE ---
Patient and all personal belongings sent with patient that was transported to home via .
--- NOTE | 2020-11-09 11:16 | PC.NURSE ---
Pt states he received and understood his discharge instructions. Pt also states the care's great and you guys have awesome staff .
--- NOTE | 2020-11-10 18:50 | PC.NURSE ---
Late entry: 11/06/2020 LR ordered [id number], cancelled and ordered NS
== END 2020-11-08 12:40 | disposition home or self-care (01) | DRG 391 ==
LOC: CHSED 18:08 → CHS2ND 18:15
PROVIDERS: Nurse Practitioner; Admitting Provider Emergency Medicine; Emergency Provider Emergency Medicine; PCP Family Medicine; Visit Provider Emergency Medicine
DX: R10.84 Generalized abdominal pain (principal); K57.90 Diverticulosis of intestine, part unspecified, without perforation or abscess without bleeding; I26.99 Other pulmonary embolism without acute cor pulmonale; I25.10 Atherosclerotic heart disease of native coronary artery without angina pectoris; J44.9 Chronic obstructive pulmonary disease, unspecified; E78.5 Hyperlipidemia, unspecified; F43.10 Post-traumatic stress disorder, unspecified; F17.290 Nicotine dependence, other tobacco product, uncomplicated; Z95.5 Presence of coronary angioplasty implant and graft; Z79.01 Long term (current) use of anticoagulants; Z96.612 Presence of left artificial shoulder joint; K52.9 Noninfective gastroenteritis and colitis, unspecified; I82.4Y2 Acute embolism and thrombosis of unspecified deep veins of left proximal lower extremity; I71.4 Abdominal aortic aneurysm, without rupture; K63.89 Other specified diseases of intestine; N40.0 Benign prostatic hyperplasia without lower urinary tract symptoms; N28.1 Cyst of kidney, acquired; R74.8 Abnormal levels of other serum enzymes
CPT/HCPCS: 36415; 74177; 80053; 81001; 83605; 83690; 84484; 85025; 85027; 93005; 96361; 96374; 97161; 97165; 97530; 99285; A9270; J0696; J1170; J1885; J2405; J7030; J7512; Q9967

== ENCOUNTER 2021-01-19 07:15 | Outpatient (CLI) | payer MEDICARE, SELFPAY ==
[2021-01-19 07:48] LABS: SARS-CoV-2 Ag Negative (Negative)
== END 2021-01-19 07:16 | disposition home or self-care (01) ==
LOC: CHSLAB 07:17
PROVIDERS: PCP Family Medicine; Visit Provider Internal Medicine Gastroenterology
DX: Z01.818 Encounter for other preprocedural examination (principal); Z20.822 Contact with and (suspected) exposure to COVID-19
CPT/HCPCS: 87426; C9803

== ENCOUNTER 2021-01-22 02:04 | Day surgery (SDC) | payer MEDICARE, SELFPAY ==
[2021-01-05 14:12] VITALS: BMI 24.7
[2021-01-22] MEDS: LACTATED RINGERS 1,000 ML 150 ML IV CONT (10:56)
[2021-01-22 10:59] VITALS: BP 122/74; PULSE 105; RESP 16; TEMP 36.4; O2SAT 94; BMI 23.2
--- NOTE | 2021-01-22 11:22 | WPDANESEPPF ---
Anes - Initial Pre Proc Eval Procedure: Operation Date: 01/22/21 11:45 Proposed Procedures p Colonoscopy - Zachariah Rose MD Date/Time: 01/22/21 11:22 Surgeon: Zachariah Rose MD Pre Op Diagnosis: colitis Patient Data Age: 80 Gender: M Height: 5 ft 11 in Weight: 75.6 kg Last Vital Signs Temp 97.5 F L 01/22/21 10:59 Pulse 105 H 01/22/21 10:59 Resp 16 01/22/21 10:59 BP 122/74 01/22/21 10:59 Pulse Ox 94 01/22/21 10:59 Allergies Allergy/AdvReac Type Severity Reaction Status Date / Time Penicillins Allergy Itching Verified 01/22/21 10:39 acetaminophen [From Tylenol] AdvReac Hypertensio Verified 01/22/21 10:39 n Home Medications Medication Instructions Recorded Confirmed Type paroxetine HCl 40 mg PO DAILY 10/12/20 01/05/21 History atorvastatin [Lipitor] 80 mg PO DAILY 10/24/20 01/05/21 History famotidine [Pepcid] 40 mg PO BID 10/24/20 01/05/21 History Eliquis 10 mg PO BID 11/04/20 01/05/21 History Patient hx anesthesia problems: none Family hx anesthesia problems: none [facility] Past Medical History Medical History (Updated 11/28/20 @ 14:25 by Zachariah Rose MD) COPD (chronic obstructive pulmonary disease) Coronary artery disease Dyslipidemia PTSD (post-traumatic stress disorder) Tobacco abuse Surgical History Surgical History H/O right wrist surgery History of coronary angioplasty with insertion of stent History of left shoulder replacement S/P ORIF (open reduction internal fixation) fracture L wrist S/P right knee arthroscopy Family History Family History Father Cerebrovascular accident Social History Social History Years smoked: 70 Smoking status: Current some day smoker Tobacco type: cigars Second hand tobacco smoke exposure: No (Smokes 1 cigar a day.) Alcohol intake: never Substance use: never Substance use type: does not use Living arrangements: with family Gender identity (if verbalized by the patient): Male Sexual Orientation (if Verbalized by the Patient): Straight or Heterosexual Spiritual care concerns: No Anes - Eval Final PreProcedure Day of Procedure 01/22/21 11:22 Patient weight: normal Heart: regular rate and rhythm Lungs: clear to auscultation Airway: Mallampati scale class II Neurological: alert and oriented Last oral intake: >/= 8 hours ASA classification: III Emergent: no Anesthetic plan: proceed Anesthesia type and monitoring: general GIVS and standard monitoring Informed Consent: The patient's anesthetic plan and its attendant risks and benefits were discussed with the patient/family/POA. Questions were solicited and answers provided to the satisfaction of the patient/family/POA.
--- NOTE | 2021-01-22 11:41 | PM.HPGS ---
History of Present Illness History of Present Illness Consent: Risks, benefits, and alternatives have been discussed and questions answered. Patient agrees to proceed with procedure. 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 Denies pain now, never had a colonoscopy Review of Systems Constitutional: Constitutional: Denies headache(s) and Denies weakness Eyes: Eyes: Denies blurry vision ENT: Reports Normal hearing present, Denies headache(s) and Denies neck pain Cardiovascular: Cardiovascular: Denies chest pain and Denies dyspnea Respiratory: Respiratory: Denies dyspnea Gastrointestinal: Gastrointestinal: Reports no additional gastrointestinal complaints Genitourinary: Genitourinary: Denies dysuria Musculoskeletal: Musculoskeletal: Denies neck pain Integumentary/Breasts: Skin/Breast: Denies dry skin Neurologic: Reports Normal hearing present, Denies headache(s) and Denies weakness Psychiatric: Psychiatric: Denies anxiety Endocrine: Endocrine: Denies change in body appearance Hematologic/Lymphatic: Hematologic/Lymphatic: Denies easy bleeding Allergic/Immunologic: Allergic/Immunologic: Denies urticaria PMFSH Past Medical History Medical History (Updated 01/22/21 @ 11:43 by Zachariah Rose MD) Colon cancer screening COPD (chronic obstructive pulmonary disease) Coronary artery disease Dyslipidemia PTSD (post-traumatic stress disorder) Tobacco abuse Surgical History Surgical History H/O right wrist surgery History of coronary angioplasty with insertion of stent History of left shoulder replacement S/P ORIF (open reduction internal fixation) fracture L wrist S/P right knee arthroscopy Family History Family History Father Cerebrovascular accident Social History Social History Years smoked: 70 Smoking status: Current some day smoker Tobacco type: cigars Second hand tobacco smoke exposure: No (Smokes 1 cigar a day.) Alcohol intake: never Substance use: never Substance use type: does not use Living arrangements: with family Gender identity (if verbalized by the patient): Male Sexual Orientation (if Verbalized by the Patient): Straight or Heterosexual Spiritual care concerns: No Meds Home Medications and Allergies Home Medications Medication Instructions Recorded Confirmed Type paroxetine HCl 40 mg PO DAILY 10/12/20 01/05/21 History atorvastatin [Lipitor] 80 mg PO DAILY 10/24/20 01/05/21 History famotidine [Pepcid] 40 mg PO BID 10/24/20 01/05/21 History Eliquis 10 mg PO BID 11/04/20 01/05/21 History Allergies Allergy/AdvReac Type Severity Reaction Status Date / Time Penicillins Allergy Itching Verified 01/22/21 10:39 acetaminophen [From Tylenol] AdvReac Hypertensio Verified 01/22/21 10:39 n Vital Signs Vital Signs - 24 hr 01/22/21 10:59 Temperature 97.5 F L Pulse Rate 105 H Respiratory Rate 16 Blood Pressure 122/74 Pulse Oximetry 94 Exam Const: General: comfortable and no acute distress HENMT: General nose exam: Normal nares present Eyes: General: appearance normal, both eyes and all related structures Neck: Neck: no JVD Resp: Auscultation: clear to auscultation bilaterally Cardio: Rate: regular rate Rhythm: regular rhythm GI: Inspection: non-distended GI Palp: Yes Soft to palpation Skin: General skin exam: normal color Neuro: General: gait normal Speech: normal speech Extrem: General: normal to inspectio
[2021-01-22 12:15] VITALS: BP 129/81; PULSE 86; RESP 27; O2SAT 95
[2021-01-22 12:25] VITALS: BP 120/73; PULSE 82; RESP 20; O2SAT 95
[2021-01-22 12:35] VITALS: BP 114/64; PULSE 69; RESP 12; O2SAT 96
== END 2021-01-22 12:52 | disposition home or self-care (01) ==
PROVIDERS: PCP Family Medicine; Visit Provider Internal Medicine Gastroenterology
PROC: 0DJD8ZZ Inspection of Lower Intestinal Tract, Via Natural or Artificial Opening Endoscopic (ICD-10-PCS; CPT 45378; principal; 2021-01-22 11:45)
DX: Z12.11 Encounter for screening for malignant neoplasm of colon (principal); D12.5 Benign neoplasm of sigmoid colon; K52.9 Noninfective gastroenteritis and colitis, unspecified; K57.30 Diverticulosis of large intestine without perforation or abscess without bleeding; K64.8 Other hemorrhoids; J44.9 Chronic obstructive pulmonary disease, unspecified; I25.10 Atherosclerotic heart disease of native coronary artery without angina pectoris; E78.5 Hyperlipidemia, unspecified; F43.10 Post-traumatic stress disorder, unspecified; Z95.5 Presence of coronary angioplasty implant and graft; F17.290 Nicotine dependence, other tobacco product, uncomplicated; Z79.01 Long term (current) use of anticoagulants
CPT/HCPCS: 45385; 88305; J2704; J7120

== ENCOUNTER 2021-01-29 12:03 | Emergency (ER) | payer MEDICARE, SELFPAY ==
[2021-01-29] VITALS (15 sets, daily range): BP systolic 94–136; BP diastolic 54–73; PULSE 78–96; RESP 12–21; TEMP 36.6; O2SAT 89–99
--- NOTE | ~2021-01-29 | XR_ITS ---
EXAMINATION: XR chest 1V portable DATE: 01/29/2021 13:20 INDICATION: Right-sided chest wall pain. TECHNIQUE: frontal view of the chest was obtained. COMPARISON: Chest CT dated 01/29/2021 and radiograph dated 11/04/2020 FINDINGS: Emphysema with increased lucency and architectural distortion in the bilateral upper lung zones. New patchy airspace opacities in the right mid and lower lung zone which on CT appear to correspond to a small right pleural effusion as well as peripheral groundglass opacities in the lateral right upper l obe most likely related to pulmonary infarcts given the pulmonary arterial filling defect seen on the prior CT in the right upper lobar and subsegmental pulmonary arteries. No pneumothorax or left-sided pleural effusion. Cardiomediastinal silhouette is normal. Moderate right glenohumeral osteoarthritis and left reverse total shoulder arthroplasty. IMPRESSION: 1. Opacities in the right mid to lower lung zone which on immediately prior chest CT appear to corres pond to a small right pleural effusion and pulmonary infarct in the right upper lobe. Pneumonia consi dered less likely. Dr. Monge discussed these findings with Dr. Lazcano at 1:35 PM. 2. Emphysema. Reviewed, dictated and finalized at location A. IMPRESSION: 1. Opacities in the right mid to lower lung zone which on immediately prior [place] st CT appear to correspond to a small right pleural effusion and pulmonary infa rct in the right upper lobe. Pneumonia considered less likely. Dr. Monge dis cussed these findings with Dr. Lazcano at 1:35 PM. 2. Emphysema.
--- NOTE | ~2021-01-29 | CT_ITS ---
. EXAMINATION: CTA chest abdomen pelvis DATE: 01/29/2021 13:22 INDICATION: Right-sided chest wall pain and abdominal cramping TECHNIQUE: Computed tomographic angiography (CTA) of the chest, abdomen and pelvis was performed with 100 mL Omnipaque-350 intravenous contrast. The dose-length product was 956 mGy-cm. COMPARISON: CT abdomen and pelvis dated 11/06/2020 FINDINGS: Chest: Moderate emphysema. Small right pleural effusion. Dependent atelectasis in the bilateral upper and lo wer lobes. More extensive groundglass opacity and septal line thickening the lateral aspect of the po sterior segment of the right upper lobe likely related to pulmonary infarct with prominent central pu lmonary arterial filling defect beginning in the right upper lobar pulmonary artery and extending to the segmental branches. No other definite pulmonary emboli identified however assessment is limited b y poor contrast presentation the pulmonary arteries in this study with contrast bolus timed for arter ial phase angiographic assessment of the aorta. Normal caliber thoracic aorta with no dissection. Hea rt size is normal. Atherosclerotic coronary artery calcifications and possible stenting. No pericardi al effusion. Small sliding-type hiatal hernia. Mild enlargement of a likely reactive precarinal lymph node which measures 12 mm in maximal short axis diameter. Severe lower thoracic spondylosis. Abdomen and pelvis: Liver, gallbladder, spleen, pancreas, bilateral adrenal glands and kidneys are normal. There are few scattered colonic diverticula without adjacent inflammatory change to suggest diverticulitis. Small b owel and appendix are normal. Mild diffuse bladder wall thickening likely related to chronic outlet o bstruction from the enlarged prostate. There is scattered calcified atherosclerosis of the aorta and many of the other arteries without hemodynamically significant stenosis. 4.0 x 3.8 fusiform infrarena l abdominal aortic aneurysm. No dissection. No free intraperitoneal gas or fluid. No pathologically e nlarged abdominal or pelvic lymphadenopathy. Lumbar spondylosis with multilevel moderate to severe fa cet osteoarthritis and severe disc height loss with degenerative endplate changes at L5-S1. Moderate left and moderate to severe right hip osteoarthritis. IMPRESSION: 1. Right upper lobar pulmonary embolism with secondary pulmonary infarct. Dr. Monge discussed thes e findings with Dr. Lazcano at 1:35 PM. 2. Small right pleural effusion. 3. Moderate emphysema. 4. 4.0 cm fusiform infrarenal abdominal aortic aneurysm. No aortic dissection. 5. Mild diffuse bladder wall thickening likely related to chronic outlet obstruction from the enlarge d prostate. Reviewed, dictated and finalized at location A. IMPRESSION: 1. Right upper lobar pulmonary embolism with secondary pulmonary infarct. Dr. Elvis romeo discussed these findings with Dr. Lazcano at 1:35 PM. 2. Small right pleural effusion. 3. Moderate emphysema. 4. 4.0 cm fusiform infrarenal abdominal aortic aneurysm. No aortic dissection. 5. Mild diffuse bladder wall thickening likely related to chronic outlet obstru ction from the enlarged prostate.
--- NOTE | 2021-01-29 12:06 | ECG_ITS ---
Measurements Intervals [place] Rate: 80 P: 72 RI: 138 QRS: 60 QRSD: 85 T: -36 QT: 324 QTc: 374 Interpretive Statements SINUS RHYTHM WITH SINUS ARRHYTHMIA CONSIDER INFERIOR INFARCT, AGE INDETERMINATE BASELINE ARTIFACT- I, II, III ,AVR, AVL, AVF, V4-V6 ABNORMAL ECG Electronically Signed On 01-29-2021 13:03:09 CDT by Henry Mayen D.O.
[2021-01-29 12:29] LABS: Basophils Absolute Auto 0.03 K/mm3 (0.00-0.10); Basophils Percent Auto 0.3 % (0.0-1.0); Eosinophils Absolute Auto 0.01 K/mm3 (0.02-0.50); Eosinophils Percent Auto 0.1 % (1.0-6.0); Hemoglobin 13.1 g/dL (12.4-15.3); Immature Granulocyte Absolute 0.04 K/mm3 (0.00-0.00); Immature Granulocyte Percent A 0.4 % (0.0-0.0); Lymphocytes Absolute Auto 1.12 K/mm3 (1.10-4.50); Lymphocytes Percent Auto 11.1 % (18.0-42.0); Mean Corpuscular HGB Conc 32.8 g/dL (32.0-36.0); Mean Corpuscular Volume 91.5 fL (78.0-102.0); Mean Platelet Volume 11.3 fl (8.7-11.0); Monocytes Absolute Auto 0.96 K/mm3 (0.10-0.90); Monocytes Percent Auto 9.5 % (2.0-11.0); Neutrophils Absolute Auto 7.9 K/mm3 (1.7-7.2); Neutrophils Percent Auto 78.6 % (50.0-70.0); Platelet Count Result 206 K/mm3 (150-420); Red Blood Count 4.37 M/mm3 (4.70-6.10); Red Cell Distribution Width 13.9 % (11.6-14.4); White Blood Count 10.1 K/mm3 (4.8-10.8)
[2021-01-29] MEDS: METOPROLOL TARTRATE INJ 5 MG/5 ML VIAL IV PUSH (12:30)
[2021-01-29 12:44] LABS: Partial Thromboplastin Time 23.9 SEC (23.90-30.70); Prothrombin Time 10.9 Seconds (9.50-12.10)
[2021-01-29 12:46] LABS: Albumin Level 2.7 g/dL (3.4-5.0); Alkaline Phosphatase 78 U/L (46-116); Anion Gap 11 mmol/L (8-16); Aspartate Amino Transferase < 10 U/L (15-37); Bilirubin,Total 0.7 mg/dL (0.00-1.00); Blood Urea Nitrogen 17 mg/dL (7-18); Calcium 8.8 mg/dL (8.5-10.1); Carbon Dioxide 28 mmol/L (21-32); Chloride 98 mmol/L (98-108); Estimated Glomerular Filt Rate > 60; Glucose 132 mg/dL (70-99); Osmolality Calculated 287 mOsm/kg (285-295); Potassium 4.2 mmol/L (3.5-5.1); Sodium 137 mmol/L (136-145); Troponin I 16.5 ng/L (0.00-60.4)
[2021-01-29] MEDS: KETOROLAC 30 MG/ML VIAL (*BKC) IV PUSH (12:48)
[2021-01-29 12:51] LABS: BNP 210 pg/mL (0-100)
[2021-01-29 12:57] LABS: Alanine Aminotransferase 16 U/L (16-63)
--- NOTE | 2021-01-29 13:19 | ED.CHESTPAIN ---
HPI - Chest Pain General Chief Complaint: Chest Pain Stated Complaint: chest pains Time Seen by Provider: 01/29/21 12:15 Source: patient Mode of arrival: ambulatory Limitations: no limitations History of Present Illness HPI narrative: Patient comes in with right sided chest pain that he says has been going on since yesterday. He rates his pain as sharp, severe (11 on a scale of 1-10), and ongoing since last pm. He comes in this am because of ongoing pain. Nothing had made this pain better at home. He believes he has had another PE, which he has had in the past. He denies any other symptoms. complaint: chest pain and chest heaviness Onset (ago): day(s) Timing of current episode: constant Prior episodes: Yes Quality: sharp Relieving factors: nothing Related Data Home Medications Medication Instructions Recorded Confirmed paroxetine HCl 40 mg PO DAILY 10/12/20 01/29/21 atorvastatin [Lipitor] 80 mg PO HS 10/24/20 01/29/21 famotidine [Pepcid] 40 mg PO BID 10/24/20 01/29/21 Eliquis 5 mg PO DAILY 11/04/20 01/29/21 Allergies Allergy/AdvReac Type Severity Reaction Status Date / Time Penicillins Allergy Itching Verified 01/29/21 16:17 acetaminophen [From Tylenol] AdvReac Hypertensio Verified 01/29/21 16:17 n Review of Systems Eyes: Eyes: Reports no additional eye complaints ENT: Reports system reviewed and no additional complaints, except as documented Cardiovascular: Cardiovascular: Reports chest pain Respiratory: Respiratory: Reports pain with cough, Reports dyspnea and Reports dyspnea on exertion Gastrointestinal: Gastrointestinal: Reports no additional gastrointestinal complaints Genitourinary: Genitourinary: Reports no additional male genitourinary complaints Musculoskeletal: Musculoskeletal: Reports no additional musculoskeletal complaints Integumentary/Breasts: Skin/Breast: Reports system reviewed and no additional complaints, except as docu Neurologic: Reports system reviewed and no additional complaints, except as documented Psychiatric: Psychiatric: Reports no additional psychiatric complaints Endocrine: Endocrine: Reports no additional endocrine complaints Hematologic/Lymphatic: Hematologic/Lymphatic: Reports no additional hematologic/lymphatic complaints Allergic/Immunologic: Allergic/Immunologic: Reports no additional allergic/immunologic complaints PMFSH Past Medical History Medical History Abdominal aortic aneurysm 4.0 fusiform infrarenal abdominal aortic aneurysm noted on imaging dated 01/29/2021. Benign prostatic hyperplasia Chronic obstructive pulmonary disease Coronary artery disease Remote history of stent. Deep venous thrombosis (~10/2020) Dyslipidemia History of MRSA infection History of skin cancer Posttraumatic stress disorder Pulmonary embolism Superior mesenteric artery thrombosis (~09/2020) Tobacco abuse Surgical History Surgical History History of arthroscopy of right knee History of colonoscopy with polypectomy (~01/2021) Benign tubular adenoma removed. History of coronary angioplasty with insertion of stent History of left shoulder replacement History of open reduction and internal fixation (ORIF) procedure Left wrist fracture. History of surgery on right wrist Family History Family History Father Cerebrovascular accident Social History Social History Social History: Surrogate decision maker: Latoya Garcia, . Code status: Full code. Years smoked: 70 Smoking status: Current some day smoker Tobacco type: cigars Second hand tobacco smoke exposure: No (Smokes 1 cigar a day.) Alcohol intake: former Substance use: never Substance use type: does not use Other substance usage details: Oct 1969 drank for 2.5-3 yrs Additional sarkis
[2021-01-29] MEDS: ENOXAPARIN 100 MG/ML SYRINGE 80 MG SUB-Q (14:05)
[2021-01-29 14:17] LABS: Base Excess ABG -0.5 mmol/L (0-2); HCO3 ABG 23.2 mmol/L (23-29); Oxygen Content ABG 16.2 %vol (16.0-22.0); Oxygen Saturation ABG 91.3 % (95-97); Oxyhemoglobin 89.2 % (94-100); PCO2 ABG 35.2 mmHg (35-45); PO2 ABG 59.6 mmHg (75-85); Total Hemoglobin 12.9 g/dL; pH ABG 7.44 (7.35-7.45)
[2021-01-29 14:19] LABS: Device ROOM AIR; Modified Allen's Test Pass; Site Drawn RIGHT RADIAL
[2021-01-29] MEDS: MAG HYDROX/AL HYDROX/SIMETH 30 ML UDC PO (15:20)
== END 2021-01-29 15:26 | disposition short-term general hospital (02) ==
PROVIDERS: Emergency Provider Emergency Medicine; PCP Family Medicine
DX: I26.99 Other pulmonary embolism without acute cor pulmonale (principal); R06.00 Dyspnea, unspecified
CPT/HCPCS: 36415; 36600; 71045; 71275; 74174; 80053; 82805; 83880; 84484; 85025; 85610; 85730; 93005; 96372; 96374; 96375; 99285; A9270; J1650; J1885; Q9967

== ENCOUNTER 2021-01-29 16:04 | Observation (INO) | payer MEDICARE, SELFPAY ==
--- NOTE | ~2021-01-29 | US_ITS ---
EXAMINATION: US venous doppler [facility] DATE: 01/30/2021 08:23 INDICATION: Acute pulmonary emboli. TECHNIQUE: Grayscale ultrasound images without and with compression and Doppler ultrasound images of the bilateral lower extremity veins were obtained. COMPARISON: Ultrasound 11/03/2020 FINDINGS: The visualized portions of right common femoral vein, profunda (deep) femoral vein, femoral vein, pop liteal vein, peroneal veins, posterior tibial veins, and greater saphenous vein outflow are patent. The visualized portions of left common femoral vein, profunda femoral vein, and greater saphenous vei n outflow are patent. There is thrombus in left femoral vein, popliteal vein, and posterior tibial an d peroneal veins. IMPRESSION: 1. Deep vein thrombosis involving the left femoral vein, popliteal vein, and posterior tibial and pe roneal veins. Reviewed, dictated and finalized at location B. IMPRESSION: 1. Deep vein thrombosis involving the left femoral vein, popliteal vein, and p osterior tibial and peroneal veins.
[2021-01-29 16:00] VITALS: BP 121/55; PULSE 86; RESP 18; TEMP 37.2; O2SAT 93
[2021-01-29 16:16] VITALS: PULSE 83
--- NOTE | 2021-01-29 16:29 | ADMGEN ---
This patient, Tanisha Garcia, was admitted to Medical Room 243-. Patient/family oriented to hospital policies and general routines including ID bracelet, bed and alarms, visiting hours, pain management, procedures, bathroom and other care routines, personal items, smoking policy, room service/diet, and visiting hours. Information on how to activate the Rapid Response Team has been discussed. Patient/Family are encouraged to report perceived risks to care and to ask questions if they do not understand what they are told or what they should do.
[2021-01-29 16:33] VITALS: BMI 22.1
--- NOTE | 2021-01-29 17:30 | PM.IMHP ---
H&P: HPI History of Present Illness Date/Time: 01/29/21 17:30 Chief Complaint: PE and possible pulmonary infarction. Narrative: This is an 80-year-old male who is being directly admitted to the hospitalist service from the emergency department at [facility] for further treatment evaluation after he was found to have a pulmonary embolism and possible pulmonary infarction. His medical history is significant for TIA, coronary artery disease, DVT, PE, COPD, and GERD. According to his EMR it looks like he was hospitalized at [facility] in September 2020 with superior mesenteric artery thrombosis and he is uncertain as to what treatment he received. Interestingly he was admitted to [facility] on 11/04/2020 after he was found to have a lower extremity DVT and pulmonary embolism and he was not on anticoagulation at that time. He was started on Eliquis though he has been taking that incorrectly, reportedly taking it only 1 time per day ?because that is what the bottle says.? He has had several other visits to the hospital for abdominal pain and was seen by Dr. Rose in consultation in November with plans for endoscopy in January. A benign colon polyp was removed on colonoscopy on 01/22/2021 and he was off of his Eliquis for 2 days prior to and 2 days following that procedure. Sometime yesterday he developed right-sided pleuritic chest pain mild shortness of breath. His symptoms were still present today and thus he presented to the hospital where he was found to have a right upper lobe pulmonary embolism with secondary pulmonary infarct. He is being transferred to [place] in this setting for closer monitoring. At the time my evaluation his main complaint is that he is on a heart healthy diet and tells me he will not eat anything until he gets a regular diet. He continues to have right-sided pleuritic pain and tells me that Toradol gave him quite a bit of relief when he received to that at [place]. He has no known history of malignancy and denies weight loss. Prior to this year he has not had any occurrences of thrombosis. Review of Systems Review of Systems: Narrative: Twelve systems were reviewed with pertinent positives and negatives as per HPI. He denies fever, chills, and sweats. No sinus congestion, rhinorrhea, otalgia, or odynophagia. He has a mild chronic cough which he attributes to his COPD. He reports mild neuropathy symptoms in both feet which have gradually worsened over the years causing his balance to be a bit off. He has not had any falls. No nausea, vomiting, or diarrhea. Except as documented, all other systems were reviewed and are negative. [facility] Past Medical History Medical History (Updated 01/29/21 @ 22:53 by Ruth Mishra PA-C) Abdominal aortic aneurysm 4.0 fusiform infrarenal abdominal aortic aneurysm noted on imaging dated 01/29/2021. Benign prostatic hyperplasia Chronic obstructive pulmonary disease Coronary artery disease Remote history of stent. Deep venous thrombosis (~10/2020) Dyslipidemia History of MRSA infection History of skin cancer Posttraumatic stress disorder Pulmonary embolism Superior mesenteric artery thrombosis (~09/2020) Tobacco abuse Surgical History Surgical History (Updated 01/29/21 @ 22:48 by Ruth Mishra PA-C) History of arthroscopy of right knee History of colonoscopy with polypectomy (~01/2021) Benign tubular adenoma removed. History of coronary angioplasty with insertion of stent History of left shoulder replacement History of open reduction and internal fixation (ORIF) procedure Left wrist fracture. History of surgery on right wrist Family History Family History Father Cerebrovascular accident Social History Social History (Updated 01/29/21 @ 22:49 by Ruth Mishra PA-C) Social History: Surrogate decision maker: Latoya Garcia, . Code status: Full
[2021-01-29 20:00] VITALS: PULSE 86
[2021-01-29 20:08] VITALS: BP 104/50; PULSE 83; RESP 18; TEMP 37.8; O2SAT 95
[2021-01-29] MEDS: ATORVASTATIN 40 MG TABLET 80 MG PO (23:37)
[2021-01-30] VITALS (9 sets, daily range): BP systolic 97–131; BP diastolic 48–58; PULSE 84–95; RESP 16–18; TEMP 36.4–37.1; O2SAT 93–94; BMI 22.1
[2021-01-30 05:30] LABS: Hematocrit 35.8 % (42.0-52.0); Hemoglobin 12.1 g/dL (14.0-18.0); Mean Corpuscular HGB Conc 33.8 g/dl (32-36); Mean Corpuscular Hemoglobin 30.2 pg (26-34); Mean Corpuscular Volume 89.3 fl (80-100); Mean Platelet Volume 12.1 fl (7.4-10.4); Platelet Count Result 188 k/mm3 (150-375); Red Blood Count 4.01 M/mm3 (4.6-6.20); White Blood Count 9.8 K/mm3 (4.5-10.0)
[2021-01-30 06:23] LABS: Anion Gap 4 mmol/L (8-16); Blood Urea Nitrogen 22 mg/dL (9-20); Calcium 8.5 mg/dL (8.4-10.2); Carbon Dioxide 27 mmol/L (22-30); Chloride 105 mmol/L (98-107); Estimated CRCL calculation 66 ml/min; Estimated Glomerular Filt Rate > 60; Glucose 108 mg/dL (75-110); Magnesium 1.8 mg/dL (1.6-2.3); Sodium 136 mmol/L (137-145)
[2021-01-30] MEDS: PARoxetine 20 MG TABLET 40 MG PO (08:51)
[2021-01-30] MEDS: FAMOTIDINE 20 MG TABLET 40 MG PO ×2 (08:51→16:29)
[2021-01-30] MEDS: APIXABAN 5 MG TABLET 10 MG PO ×2 (09:24→20:17)
--- NOTE | 2021-01-30 13:59 | PM.IMPN ---
Progress Note: A&P Assessment and Plan (1) Pulmonary embolism on right: Code(s): I26.99 - Other pulmonary embolism without acute cor pulmonale Status: Inactive Assessment and Plan: The patient was off of his Eliquis for approximately 5 days just last week for colonoscopy. Prior to this year he has never had a DVT or PE, and precipitating etiology is not clear. No evidence of malignancy noted on CT scan this stay. Venous Doppler of LE shows DVT involving left femoral vein, popliteal and posterior tibial and peroneal veins; similar to Venous Doppler in 10/2020 Will continue Eliquis 10 mg BID x 7 days; then 5 mg BID thereafter. He was instructed that he needs to be taking that 2 times per day. Monitor overnight Symptom control with Robitussin DM Q4hr PRN Likely discharge tomorrow if clinically improved (2) Pulmonary infarction: Code(s): I26.99 - Other pulmonary embolism without acute cor pulmonale Status: Acute Assessment and Plan: Area of pulmonary infarction noted in the right upper lobe related to above. Continue Eliquis. (3) Chronic obstructive pulmonary disease: Code(s): J44.9 - Chronic obstructive pulmonary disease, unspecified Status: Acute Assessment and Plan: No acute issues. Albuterol HFA available if needed. (4) Coronary artery disease: Code(s): I25.10 - Atherosclerotic heart disease of [place] coronary artery without angina pectoris Status: Acute Assessment and Plan: Status post stent decades ago. No acute issues. (5) Tobacco abuse: Code(s): Z72.0 - Tobacco use Status: Acute Assessment and Plan: The patient smokes cigars daily and will not entertain any conversation with regards to smoking cessation. Subjective Date/time seen: 01/30/21 13:59 Interval history: Patient is a 80 yo M with history of TIA, coronary artery disease, DVT, PE, COPD, and GERD who is seen in follow up for PE and subsequent pulmonary infarction. Patient states he still has pleuritic chest pain and feels SOB as he cannot take comfortable breathes in. He has a dry cough that exacerbates his pain. He notes he is dehydrated and makes note that his urine looks like mustard . He also thinks he is weak and shaky as he has not been moving around much at home recently. No other complaints at the moment. He is uneasy being discharged today given his above symptoms. Denies current subjective f/c/s,headaches, dizziness, lightheadedness, palpitations, n/v/d/c, abd pain, dysuria, hematuria, calf pain/swelling. Review of Systems Review of Systems: All systems reviewed & are unremarkable except as noted in HPI and below Exam Narrative: Exam Narrative: General: Patient resting supine in bed in no acute distress. HEENT: Normocephalic, EOMI, oral mucosa moist. Cardiovascular: Rate and rhythm are regular. No notable murmur, rub, or gallop. Tele shows predominantly NSR with PVCs over the past 24 hours; 3 beat run of nonsustained Vtach this afternoon; asymptomatic Respiratory: Lungs clear to auscultation all vivas; diminished in lung bases. Non-labored breathing. Abdomen: Soft, non-tender, non-distended, bowel sounds present. Extremities: Peripheral pulses intact. No edema. NTTP b/l calves. Varicose vein noted LLE Neuro: No focal neurological deficits. Speech is clear. Objective Data Vital Signs Vital Signs: Last Vital Signs Temp 98.8 F 01/30/21 06:00 Pulse 87 01/30/21 12:00 Resp 18 01/30/21 06:00 BP 97/52 L 01/30/21 06:00 Pulse Ox 94 01/30/21 06:00 Intake/Output Intake/Output: Intake & Output 01/27/21 01/28/21 01/29/21 01/30/21 23:59 23:59 23:59 23:59 Intake Total 250 540 Balance 250 540 Meds/Results Medications: Active Med
[2021-01-30] MEDS: guaiFENesin/DEXTROMETHORPHAN 10 ML UDC PO ×3 (14:30→22:31)
[2021-01-30] MEDS: SODIUM CHLORIDE 0.9% IV 1,000 ML 100 ML IV CONT (14:31)
--- NOTE | 2021-01-30 15:20 | PC.NURSE ---
On 01/30/21, the student, Brenna Villarreal, provided care and completed [facility] documentation on this patient. I have reviewed the student's documentation and agree with the findings.
[2021-01-30] MEDS: ATORVASTATIN 40 MG TABLET 80 MG PO (20:17)
[2021-01-31] VITALS: PULSE 83
[2021-01-31] MEDS: SODIUM CHLORIDE 0.9% IV 1,000 ML 100 ML IV CONT (01:32)
[2021-01-31] MEDS: guaiFENesin/DEXTROMETHORPHAN 10 ML UDC PO ×2 (02:31→06:41)
[2021-01-31 04:00] VITALS: PULSE 78
[2021-01-31 05:49] LABS: Basophils Percent Auto 0.4 % (0.2-1.2); Eosinophils Percent Auto 0.4 % (0-4.4); Hematocrit 36.4 % (42.0-52.0); Hemoglobin 11.8 g/dL (14.0-18.0); Immature Granulocyte Absolute 0.03 K/mm3 (0.00-0.031); Immature Granulocyte Percent A 0.4 % (0-0.5); Lymphocytes Absolute Auto 1.06 K/mm3 (0.9-3.2); Lymphocytes Percent Auto 13.2 % (18.3-44.2); Mean Corpuscular HGB Conc 32.4 g/dl (32-36); Mean Corpuscular Hemoglobin 29.9 pg (26-34); Mean Corpuscular Volume 92.2 fl (80-100); Mean Platelet Volume 11.6 fl (7.4-10.4); Monocytes Absolute Auto 0.8 K/mm3 (0.1-0.6); Monocytes Percent Auto 10.4 % (2.6-8.5); Neutrophils Percent Auto 75.2 % (45.5-73.1); Platelet Count Result 210 k/mm3 (150-375); Red Blood Count 3.95 M/mm3 (4.6-6.20); Red Cell Distribution Width 14.1 % (11.5-14.5)
[2021-01-31 06:00] VITALS: BP 110/58; PULSE 85; RESP 16; TEMP 36.4; O2SAT 94
[2021-01-31 06:05] LABS: Anion Gap 2 mmol/L (8-16); Blood Urea Nitrogen 13 mg/dL (9-20); Calcium 7.8 mg/dL (8.4-10.2); Carbon Dioxide 30 mmol/L (22-30); Chloride 108 mmol/L (98-107); Estimated CRCL calculation 66 ml/min; Estimated Glomerular Filt Rate > 60; Glucose 134 mg/dL (75-110); Magnesium 1.8 mg/dL (1.6-2.3); Potassium 4.3 mmol/L (3.4-5.0); Sodium 140 mmol/L (137-145)
[2021-01-31 08:00] VITALS: PULSE 86
[2021-01-31] MEDS: FAMOTIDINE 20 MG TABLET 40 MG PO (08:17)
[2021-01-31] MEDS: PARoxetine 20 MG TABLET 40 MG PO (08:17)
[2021-01-31] MEDS: APIXABAN 5 MG TABLET 10 MG PO (08:17)
--- NOTE | 2021-01-31 08:50 | PM.DS ---
DS: Admitting Diagnosis Admitting Diagnosis Admitting Diagnosis: PE with secondary pulmonary infarct DS: Discharge Diagnosis Discharge Diagnosis (1) Pulmonary embolism on right: Code(s): I26.99 - Other pulmonary embolism without acute cor pulmonale Status: Inactive Assessment and Plan: The patient was off of his Eliquis for approximately 5 days just last week for colonoscopy. Prior to this year he has never had a DVT or PE, and precipitating etiology is not clear. No evidence of malignancy noted on CT scan this stay. Venous Doppler of LE shows DVT involving left femoral vein, popliteal and posterior tibial and peroneal veins; similar to Venous Doppler in 10/2020 Will continue Eliquis 10 mg BID x 7 days (through 02/05); then 5 mg BID thereafter (starting 02/06). He was instructed that he needs to be taking that 2 times per day and understands these instruction Symptom control with OTC Mucinex Discharge today F/u with PCP in 1-2 weeks (2) Pulmonary infarction: Code(s): I26.99 - Other pulmonary embolism without acute cor pulmonale Status: Acute Assessment and Plan: Area of pulmonary infarction noted in the right upper lobe related to above. Continue Eliquis. (3) DVT (deep venous thrombosis): Qualifiers: Affected thrombotic vein of extremity: unspecified lower extremity proximal vein Chronicity: acute DVT location: lower extremity Laterality: left Qualified Code(s): I82.4Y2 - Acute embolism and thrombosis of unspecified deep veins of left proximal lower extremity Code(s): I82.409 - Acute embolism and thrombosis of unspecified deep veins of unspecified lower extremity Status: Acute Assessment and Plan: Venous Doppler of LE this stay shows DVT involving left femoral vein, popliteal and posterior tibial and peroneal veins; similar findings to Venous Doppler in 10/2020 Treatment as above (4) Chronic obstructive pulmonary disease: Code(s): J44.9 - Chronic obstructive pulmonary disease, unspecified Status: Acute Assessment and Plan: No acute issues. Albuterol HFA available if needed. (5) Coronary artery disease: Code(s): I25.10 - Atherosclerotic heart disease of [place] coronary artery without angina pectoris Status: Acute Assessment and Plan: Status post stent decades ago. No acute issues. (6) Tobacco abuse: Code(s): Z72.0 - Tobacco use Status: Acute Assessment and Plan: The patient smokes cigars daily and will not entertain any conversation with regards to smoking cessation again today (7) Abdominal aortic aneurysm: Code(s): I71.4 - Abdominal aortic aneurysm, without rupture Status: Acute Assessment and Plan: Noted on CTA c/a/p on 01/29/21 Will need f/u with PCP and likely vascular surgeon referral in future DS: Summary Hospital Course Reason for hospitalization: PE with secondary pulmonary infarct, persistent DVT Hospital Course: Date of arrival: 01/29/21 Date of discharge: 01/31/21 Patient is a 80-year-old male who was directly admitted to the hospitalist service on 01/29 from the emergency department at [facility] for further treatment evaluation after he was found to have a pulmonary embolism and possible pulmonary infarction. His medical history is significant for TIA, coronary artery disease, DVT, PE, COPD, and GERD. As above, on arrival to ED, CTA C/A/P revealed RUL PE with secondary pulmonary infarct. His PE found in 10/2020 was only partially treated with Eliquis as patient reported only taking medication once daily; he also was off therapy due to recent colonoscopy. Patient transferred to [facility]
--- NOTE | 2021-01-31 10:17 | PC.NURSE ---
On 01/31/21, the student, [Fatoumata Quintanilla ], provided care and completed [facility] documentation on this patient. I have reviewed the student's documentation and agree with the findings.
--- NOTE | 2021-01-31 13:33 | PC.NURSE ---
Attempted to call patient at 0930 and 13:33 with no answer or vm available.
--- NOTE | 2021-01-31 14:11 | PC.NURSE ---
Spoke with patient regarding taking his Eliquis 5 mg tabs that he has at home. He states understanding and agreement to take Eliquis 5 mg tabs, 2 tabs(10 mg) twice a day. Instructed patient to call [facility] as they would like to discuss with him.
== END 2021-01-31 10:00 | disposition home or self-care (01) ==
PROVIDERS: Physician Assistant; Admitting Provider Internal Medicine; PCP Family Medicine; Visit Provider Family Medicine
DX: I26.99 Other pulmonary embolism without acute cor pulmonale (principal); I82.412 Acute embolism and thrombosis of left femoral vein; I82.432 Acute embolism and thrombosis of left popliteal vein; I82.442 Acute embolism and thrombosis of left tibial vein; I71.4 Abdominal aortic aneurysm, without rupture; I25.10 Atherosclerotic heart disease of native coronary artery without angina pectoris; F17.290 Nicotine dependence, other tobacco product, uncomplicated; J44.9 Chronic obstructive pulmonary disease, unspecified; Z86.73 Personal history of transient ischemic attack (TIA), and cerebral infarction without residual deficits; Z79.899 Other long term (current) drug therapy; Z79.01 Long term (current) use of anticoagulants
CPT/HCPCS: 36415; 80048; 83735; 84443; 85025; 85027; 93970; 96360; 96361; A9270; G0378; J7030

== ENCOUNTER 2021-04-26 13:14 | Outpatient (CLI) | payer MEDICARE, SELFPAY ==
--- NOTE | 2021-04-26 13:16 | ECHO_ITS ---
Patient Info Name: Tanisha Garcia Age: 80 years : 1940 Gender: Male Ht: 71 in Wt: 167 lbs BSA: 1.95 m2 HR: 70 bpm BP: 110 / 50 mmHg Technical Quality: Fair Exam Date: 04/26/2021 1:11 PM Exam Location: [facility] Patient Status: Outpatient Admit Date: 04/26/2021 Staff Ordering Physician: Henry Mayen DO Metal Plater: Lazaro Bosch, BRENDA, RT Attending Provider: Henry Mayen DO Referring Physician: Faheem CATHERINE; Exam Type: CA echo dop color flow w con Study Info Indications R06.00 - Dyspnea, unspecified Complete two-dimensional, color flow and Doppler transthoracic echocardiogram is performed. Strain analysis performed. Summary 1. Complete two-dimensional, color flow and Doppler transthoracic echocardiogram is performed. 2. Left ventricular systolic function is preserved, estimated at 50-55%. 3. Left ventricular chamber dimension is normal. 4. The left ventricular diastolic function is grade I diastolic dysfunction. 5. E/e' 10 is mildly elevated. 6. Left atrial chamber dimension is mildly enlarged. 7. The aortic valve is not well visualized. Cannot determine number of aortic valve leaflets. 8. There is mild aortic valve stenosis based on a peak velocity of 139.52 cm/s, mean gradient of 4 mmHg, and aortic valve area of 1.77 cm2. 9. There is trace mitral valve regurgitation. 10. There is mild tricuspid valve regurgitation. 11. No pulmonary hypertension, estimated pulmonary arterial systolic pressure is 32 mmHg. Left Ventricle E/e' 10 is mildly elevated. Left ventricular systolic function is preserved, estimated at 50-55%. Left ventricular chamber dimension is normal. The left ventricular diastolic function is grade I diastolic dysfunction. Right Ventricle Right ventricular systolic function is normal and with normal TAPSE 1.9 cm. Right ventricular chamber dimension is normal. Left Atria Left atrial chamber dimension is mildly enlarged. Right Atria Right atrial chamber dimension is normal. Aortic Valve The aortic valve is not well visualized. Cannot determine number of aortic valve leaflets. There is mild aortic valve stenosis based on a peak velocity of 139.52 cm/s, mean gradient of 4 mmHg, and aortic valve area of 1.77 cm2. There is no aortic valve regurgitation. Pulmonic Valve There is no pulmonic regurgitation. Mitral Valve There is no mitral valve stenosis. There is trace mitral valve regurgitation. Tricuspid Valve There is mild tricuspid valve regurgitation. No pulmonary hypertension, estimated pulmonary arterial systolic pressure is 32 mmHg. Pericardium/Pleural There is no pericardial effusion. Inferior Vena Cava Normal inferior vena cava with >50% collapse upon inspiration consistent with normal right atrial pressure, 5 mmHg. Aorta The aortic root size at the sinus of Valsalva is not well visualized. Left Ventricular Outflow Tract Name Value Normal LVOT 2D LVOT Diameter 2.02 cm LVOT Doppler LVOT Peak Velocity 82.37 cm/s LVOT Peak Gradient 3 mmHg LVOT Mean Gradient 1 mmHg LVOT
== END 2021-04-26 13:15 | disposition home or self-care (01) ==
LOC: CHSIMG 13:16
PROVIDERS: PCP Family Medicine; Visit Provider Internal Medicine Cardiovascular Disease
DX: R06.00 Dyspnea, unspecified (principal)
CPT/HCPCS: 93306; C8929

== ENCOUNTER 2021-07-27 11:22 | Outpatient (CLI) | payer MEDICARE, SELFPAY ==
--- NOTE | ~2021-07-27 | US_ITS ---
EXAMINATION: US venous doppler LE EXAM DATE: 07/27/2021 13:32 INDICATION: Critical d-dimer. Right leg pain. Elevated d-dimer, history of DVT on blood thinners. TECHNIQUE: Multiple grayscale, color flow and Doppler images of the lower extremity deep venous syste ms bilaterally were obtained and reviewed. Comparison is made to prior examination from 01/30/2021. FINDINGS: RIGHT SIDE Common femoral: -------- Normal. Profunda femoral: ------- Normal. Femoral: Normal. Popliteal: Normal. Posterior tibial: --------- Normal. Peroneal: Normal. Gastrocnemius: Not visualized. Soleus: Not visualized. Greater saphenous: ----- Normal. Lesser saphenous: ------ Not visualized. LEFT SIDE Common femoral: -------- Normal. Profunda femoral: ------- Marilee Femoral: Thrombosed distally. Popliteal: Nonocclusive thrombus. Posterior tibial: ---------Nonocclusive thrombus. Peroneal: Nonocclusive thrombus. Gastrocnemius: Not visualized. Soleus: Not visualized. Greater saphenous: ----- Normal. Lesser saphenous: ------ Not visualized. Similar distribution to thrombosed vessels on prior study. IMPRESSION: 1. Persistent left-sided DVT. 2. No right-sided DVT. Reviewed, dictated and finalized at location B.
--- NOTE | ~2021-07-27 | XR_ITS ---
XR femur RT min 2V DATE: 07/27/2021 12:03 INDICATION: Right leg pain TECHNIQUE: AP and lateral views of right femur COMPARISON: None FINDINGS: There is moderately severe right hip osteoarthritis. There is mild periarticular spurring of the patella consistent with osteoarthritis. There is chondroc alcinosis at the knee joint. No fracture or dislocation, periosteal reaction or bone destruction of the right femur. Calcifications of common femoral and popliteal arteries. IMPRESSION: Moderately severe right hip osteoarthritis Patellofemoral osteoarthritis Chondrocalcinosis of the knee Reviewed, dictated and finalized at location A.
--- NOTE | ~2021-07-27 | XR_ITS ---
XR hip RT min 2V DATE: 07/27/2021 12:03 INDICATION: Right leg pain for 8 to 10 days TECHNIQUE: AP and lateral views of right hip COMPARISON: None FINDINGS: There is prominent joint space narrowing as well as degenerative spurring, consistent with moderately severe right hip osteoarthritis. No fracture or dislocation, avascular necrosis or bone destruction is detected. The pubic symphysis and right sacroiliac joint are intact. Common femoral and femoral arterial calcifications. IMPRESSION: Moderately severe right hip osteoarthritis Reviewed, dictated and finalized at location A.
[2021-07-27 11:36] LABS: Basophils Absolute Auto 0.04 K/mm3 (0.00-0.10); Basophils Percent Auto 0.9 % (0.0-1.0); Eosinophils Absolute Auto 0.08 K/mm3 (0.02-0.50); Eosinophils Percent Auto 1.8 % (1.0-6.0); Hematocrit 44.1 % (37.0-46.0); Hemoglobin 14.8 g/dL (12.4-15.3); Immature Granulocyte Absolute 0.01 K/mm3 (0.00-0.00); Immature Granulocyte Percent A 0.2 % (0.0-0.0); Lymphocytes Absolute Auto 1.51 K/mm3 (1.10-4.50); Lymphocytes Percent Auto 34.9 % (18.0-42.0); Mean Corpuscular HGB Conc 33.6 g/dL (32.0-36.0); Mean Corpuscular Volume 92.3 fL (78.0-102.0); Mean Platelet Volume 10.9 fl (8.7-11.0); Monocytes Absolute Auto 0.53 K/mm3 (0.10-0.90); Monocytes Percent Auto 12.2 % (2.0-11.0); Neutrophils Absolute Auto 2.2 K/mm3 (1.7-7.2); Platelet Count Result 221 K/mm3 (150-420); Red Blood Count 4.78 M/mm3 (4.70-6.10); Red Cell Distribution Width 14.5 % (11.6-14.4); White Blood Count 4.3 K/mm3 (4.8-10.8)
[2021-07-27 11:48] LABS: Prothrombin Time 10.5 Seconds (9.50-12.10)
[2021-07-27 11:49] LABS: Alanine Aminotransferase 31 U/L (16-63); Albumin Level 3.5 g/dL (3.4-5.0); Alkaline Phosphatase 82 U/L (46-116); Anion Gap 7 mmol/L (8-16); Aspartate Amino Transferase 17 U/L (15-37); Bilirubin,Total 0.5 mg/dL (0.00-1.00); Blood Urea Nitrogen 16 mg/dL (7-18); Carbon Dioxide 31 mmol/L (21-32); Chloride 105 mmol/L (98-108); Estimated Glomerular Filt Rate > 60; Glucose 89 mg/dL (70-99); Osmolality Calculated 296 mOsm/kg (285-295); Potassium 4.7 mmol/L (3.5-5.1); Sodium 143 mmol/L (136-145); Total Protein 7.2 g/dL (6.4-8.2)
[2021-07-27 11:54] LABS: D Dimer 1.25 mg/L (0.19-0.50)
== END 2021-07-27 11:23 | disposition home or self-care (01) ==
PROVIDERS: PCP Family Medicine; Visit Provider Family Medicine
DX: R79.1 Abnormal coagulation profile (principal); M79.604 Pain in right leg; I82.402 Acute embolism and thrombosis of unspecified deep veins of left lower extremity
CPT/HCPCS: 36415; 73502; 73552; 80053; 85025; 85380; 85610; 93970

== ENCOUNTER 2021-08-04 09:13 | Outpatient (CLI) | payer MEDICARE, SELFPAY ==
--- NOTE | ~2021-08-04 | MR_ITS ---
EXAMINATION: MR lumbar spine wo con EXAM DATE: 08/04/2021 11:12 INDICATION: Lumbar radiculopathy. Right leg, low back pain. TECHNIQUE: Multi-sequential, multiplanar MR images of the lumbar spine were obtained without contrast . Sagittal T1, T2, T2 fat saturation images. Axial T2 weighted images. Correlation is made to CT an giogram 01/29/2021. FINDINGS: There is mid abdominal aortic aneurysm which is completely imaged and measures up to 4.0 cm in diameter. This dimension is unchanged from that reported on CT angiogram from January. There is moderate to severe loss of the L5-S1 disc height, moderate at L4-5. There is 2 mm anterolist hesis L3 on L4. The conus medullaris terminates at the T12-L1 level and has normal signal intensity a nd morphology. There are scattered focal signal abnormalities consistent with hemangiomata, otherwis e without focal suspicious marrow signal abnormalities. Level by level evaluation: L1-L2: There is a minimal diffuse disc bulge. Facet arthropathy: Mild. Neural foraminal stenosis: Mild left. Central canal stenosis: No stenosis. L2-L3: There is a mild diffuse disc bulge. Facet arthropathy: Mild to moderate. Neural foraminal stenosis: Minimal bilateral. Central canal stenosis: Minimal. L3-L4: There is a mild to moderate diffuse disc bulge. Facet arthropathy: Moderate, left more than right. Neural foraminal stenosis: Minimal bilateral. Central canal stenosis: Mild. L4-L5: There is a mild diffuse disc bulge. Facet arthropathy: Moderate, left greater than right. Neural foraminal stenosis: Mild to moderate left, mild right. Central canal stenosis: Mild, with probable left hemilaminotomy. L5-S1: There is a mild diffuse disc bulge. Facet arthropathy: Mild. Neural foraminal stenosis: Mild to moderate bilateral. Central canal stenosis: No stenosis. IMPRESSION: 1. Moderate to severe loss of L5-S1 disc height. 2. Moderate mid lumbar facet arthropathy. Reviewed, dictated and finalized at location B.
--- NOTE | ~2021-08-04 | MR_ITS ---
EXAMINATION: MR pelvis wo con DATE: 08/04/2021 11:11 INDICATION: Right hip pain. TECHNIQUE: Magnetic resonance imaging (MRI) of the pelvis was performed without intravenous contrast. Sequences included axial and coronal T1-weighted FSE, axial T2-weighted FS FSE, coronal STIR FSE, sa gittal T2-weighted FS FSE, and sagittal T1-weighted FSE. COMPARISON: Right hip radiographs 07/27/2021, CT abdomen and pelvis 01/29/2021 FINDINGS: Bone alignment is normal. There is severe lumbar spondylosis. There is severe right hip osteoarthriti s with subchondral edema-like marrow signal intensity in the superior acetabulum. There is moderate l eft hip osteoarthritis. There is severe tendinopathy of right hamstring origin and moderate tendinopa thy of left hamstring origin. The iliopsoas tendons are normal. There is mild right gluteus minimus t endinopathy. Right gluteus medius tendon and the left gluteus minimus and gluteus medius tendons are normal. There is mild bilateral trochanteric bursitis. There are small bilateral hip joint effusions. Right-sided iliopsoas bursitis is noted. IMPRESSION: 1. No fracture. 2. Severe right hip osteoarthritis and moderate left hip osteoarthritis. 3. Small bilateral hip joint effusions. 4. Right-sided iliopsoas bursitis. Reviewed, dictated and finalized at location A.
== END 2021-08-04 09:14 | disposition home or self-care (01) ==
LOC: CHSIMG 09:15
PROVIDERS: PCP Family Medicine; Visit Provider Family Medicine
DX: M54.17 Radiculopathy, lumbosacral region (principal)
CPT/HCPCS: 72148; 72195

== ENCOUNTER 2021-08-29 19:39 | Emergency (ER) | payer MEDICARE, SELFPAY ==
[2021-08-29 20:15] VITALS: BP 127/68; PULSE 81; RESP 20; TEMP 36.6; O2SAT 95
--- NOTE | 2021-08-29 21:29 | ED.EXTPRO ---
HPI - Extremity Problem General Chief complaint: Extremity Problem,Nontraumatic Stated complaint: L leg injury Time Seen by Provider: 08/29/21 19:41 Source: patient and RN notes reviewed Mode of arrival: ambulatory Limitations: no limitations History of Present Illness Complaint: extremity pain Onset (ago): hour(s) (2) Location: left and lower extremity (hamstring pain. Pt denied any anterior left lower extremity injury or bone pain) Severity scale (1-10): 7 Quality: aching and dull Radiation: none Relieving factors: nothing Exacerbating factors: weight bearing, walking and other Associated symptoms: denies other symptoms and other (pt was adamant he tripped and fell hitting the left pugh and his hamstring was painful. denied chest pain, SOB or lateralizing focal sxs.) Related Data Home Medications Medication Instructions Recorded Confirmed famotidine [Pepcid] 40 mg PO BID 10/24/20 08/29/21 Allergies Allergy/AdvReac Type Severity Reaction Status Date / Time Penicillins Allergy Itching Verified 04/09/21 13:02 acetaminophen [From Tylenol] AdvReac Hypertensio Verified 04/09/21 13:02 n Review of Systems Review of Systems: All systems reviewed & are unremarkable except as noted in HPI and below Musculoskeletal: Musculoskeletal: Reports muscle cramps PMFSH Past Medical History Medical History Abdominal aortic aneurysm 4.0 fusiform infrarenal abdominal aortic aneurysm noted on imaging dated 01/29/2021. Benign prostatic hyperplasia Chronic obstructive pulmonary disease Coronary artery disease Remote history of stent. Deep venous thrombosis (~10/2020) Dyslipidemia History of MRSA infection History of skin cancer Posttraumatic stress disorder Pulmonary embolism Superior mesenteric artery thrombosis (~09/2020) Tobacco abuse Surgical History Surgical History History of arthroscopy of right knee History of colonoscopy with polypectomy (~01/2021) Benign tubular adenoma removed. History of coronary angioplasty with insertion of stent History of left shoulder replacement History of open reduction and internal fixation (ORIF) procedure Left wrist fracture. History of surgery on right wrist Family History Family History Father Cerebrovascular accident Social History Social History Social History: Surrogate decision maker: Latoya Garcia, . Code status: Full code. Years smoked: 70 Smoking status: Current every day smoker Tobacco type: cigars Second hand tobacco smoke exposure: No (Smokes 1 cigar a day.) Alcohol intake: former Substance use: never Substance use type: does not use Other substance usage details: Oct 1969 drank for 2.5-3 yrs Additional living arrangements comments: The patient lives in [place] with his and [id number]. Additional occupation/education comments: In the [employer] for 12 years. Retired auto service mechanic. Gender identity (if verbalized by the patient): Male Sexual Orientation (if Verbalized by the Patient): Straight or Heterosexual Spiritual care concerns: No Exam Const: General: healthy appearing, no acute distress and alert Nutritional Appearance: well nourished Orientation/consciousness: patient oriented x3 Limitations: no limitations HENMT: Head: normal to inspection Ears: external ears normal and TM's normal bilaterally General nose exam: Normal external nose present and Normal nares present Mouth: Yes lip normal and Yes moist mucous membranes Teeth and gingiva: dentition normal Eyes: Conjunctivae: conjunctivae normal Pupils: Equal, round and reactive pupils present EOM: EOMs intact bilaterally Neck: Neck: normal visual inspection and no lymphadenopathy Chest: Chest palpation & inspection: norm
[2021-08-29] MEDS: KETOROLAC (*BKC) 60 MG/2 ML VIAL IM (22:30)
[2021-08-29 22:42] VITALS: BP 114/77; PULSE 86; RESP 18; TEMP 37; O2SAT 95
== END 2021-08-29 21:30 | disposition home or self-care (01) ==
PROVIDERS: Emergency Provider Emergency Medicine; PCP Family Medicine
DX: S76.912A Strain of unspecified muscles, fascia and tendons at thigh level, left thigh, initial encounter (principal); W01.0XXA Fall on same level from slipping, tripping and stumbling without subsequent striking against object, initial encounter; I25.10 Atherosclerotic heart disease of native coronary artery without angina pectoris; Z86.711 Personal history of pulmonary embolism; F17.200 Nicotine dependence, unspecified, uncomplicated
CPT/HCPCS: 96372; 99283; J1885

== ENCOUNTER 2021-09-15 08:28 | Outpatient (CLI) | payer MEDICARE, SELFPAY ==
--- NOTE | ~2021-09-15 | MR_ITS ---
EXAMINATION: MR femur LT wo con DATE: 09/15/2021 10:13 INDICATION: Left thigh pain. TECHNIQUE: Magnetic resonance imaging (MRI) of the left femur was performed without intravenous contr ast. Sequences included axial, coronal, and sagittal STIR FSE and PD-weighted FSE. COMPARISON: None. FINDINGS: Bone alignment is normal. No fracture. Bone marrow signal intensity is normal. There is a c omplete tear of semimembranosus tendon at its attachment on the ischial tuberosity with 9 cm distal r etraction of the torn tendon. There is a 17.3 x 4.6 x 2.9 cm hematoma around the tendon. IMPRESSION: 1. Complete tear of semimembranosus tendon from its attachment on the ischial tuberosity with associa sofía hematoma. Reviewed, dictated and finalized at location A. SENIOR DEVELOPER IMPRESSION: 1. Complete tear of semimembranosus tendon from its attachment on the ischial t uberosity with associated hematoma.
== END 2021-09-15 08:29 | disposition home or self-care (01) ==
LOC: CHSIMG 08:29
PROVIDERS: PCP Family Medicine; Visit Provider Family Medicine
DX: S76.312A Strain of muscle, fascia and tendon of the posterior muscle group at thigh level, left thigh, initial encounter (principal)
CPT/HCPCS: 73721